=== PATIENT | female | born 1935 | race Hispanic/Latino ===

== ENCOUNTER 2018-11-08 11:26 | Inpatient (IN) | payer MEDICARE, OTHER ==
--- NOTE | 2018-11-08 11:51 | Emergency Department Report ---
Chief Complaint: Chest Pain Stated Complaint: CHEST PAIN/ALICE Time Seen by Provider: 11/08/18 11:49 - HPI History of Present Illness: RX LANSOPRAZILE NORVASC BENICAR VERAPAMIL RESTASIS NAMENDA ALENDRONATE VIT C D E GLUCOSAMINE MVI ALEVE PMH ALZ HTN PCP ANIKET CO CP THIS AM UNCLEAR DUE TO ALZ DISEASE MSE COMPLETED MSE screening note: Focused history and physical exam performed. Due to findings the following was ordered: ED Disposition for MSE Condition: Stable
--- NOTE | 2018-11-08 12:10 | XRay Report ---
Chest 2 views: History: Chest pain. Findings: Cardiomegaly. Trachea is midline. Mild COPD. Small hiatal hernia. No consolidation or pleural effusion. Impression: COPD. Small hiatal hernia. No acute lung changes.
[2018-11-08 13:00] LABS: Bacteria,Urine 1+ /HPF (Negative); Bilirubin,Urine NEG (Negative); Blood,Urine LG (Negative); Color,Urine Yellow (Yellow); Mucus,Urine 3+ /HPF; Urobilinogen,Urine < 2.0 mg/dL (<2.0)
[2018-11-08 13:37] LABS: Basophils # (Auto) 0.1 K/mm3 (0.0-0.1); Basophils % (Auto) 1.2 % (0.0-1.8); Eosinophils # (Auto) 0.7 K/mm3 (0.0-0.4); Eosinophils % (Auto) 9.7 % (0.0-4.3); Hematocrit 32.9 % (30.3-42.9); Hemoglobin 11.3 gm/dl (10.1-14.3); Lymphocytes # (Auto) 1.2 K/mm3 (1.2-5.4); Lymphocytes % (Auto) 16.8 % (13.4-35.0); Mean Corpuscular HGB Conc 34 % (30-34); Mean Corpuscular Volume 86 fl (79-97); Monocytes # (Auto) 0.7 K/mm3 (0.0-0.8); Monocytes % (Auto) 9.8 % (0.0-7.3); Platelet Count 401 K/mm3 (140-440); Red Blood Count 3.85 M/mm3 (3.65-5.03); Red Cell Distribution Width 13.9 % (13.2-15.2)
[2018-11-08 13:58] LABS: Albumin 3.5 g/dL (3.9-5); Calcium 9.4 mg/dL (8.4-10.2)
--- NOTE | 2018-11-08 16:34 | Emergency Department Report ---
ED Chest Pain HPI - General Chief Complaint: Chest Pain Stated Complaint: CHEST PAIN/ALICE Time Seen by Provider: 11/08/18 11:49 Source: patient, family Mode of arrival: Ambulatory Limitations: Altered Mental Status - History of Present Illness Initial Comments: Mrs. Hale is an 83 yo female with hx of Alzheimer's dementia and mild HTN who presents with chest pain today. Son, who is caregiver, noticed shortness of breath. Mrs. Hale was also holding her chest. Currently chest pain free at this time. No other medical problems or current concerns. in 2016, normal echocardiogram according to EMR, cardiovascular w/u for AMS was unremarkable in 2016 during hospital stay PCP Dr. Beni Echols Severity scale (0 -10): 0 - Related Data Home Medications Medication Instructions Recorded Confirmed Last Taken Furosemide [Lasix] 40 mg PO DAILY 12/06/13 07/24/15 Unknown Naproxen Sodium [Aleve TAB] 220 mg PO BID 12/06/13 07/24/15 Unknown amLODIPine [Norvasc] 10 mg PO DAILY 12/06/13 07/24/15 Unknown Amoxicillin [Trimox CAP] 500 mg PO Q8H 07/24/15 07/24/15 1 Day Ago ~07/23/15 Lansoprazole [Prevacid] 30 mg PO DAILY 07/24/15 07/24/15 Unknown Memantine HCl/Donepezil HCl 1 each PO DAILY 07/24/15 07/24/15 Unknown [Namzaric 28 mg-10 mg Capsule] Olmesartan (Nf) [Benicar] 40 mg PO QDAY 07/24/15 07/24/15 Unknown Vitamin D-3 400 units PO DAILY 07/24/15 07/24/15 Unknown Vitamin E 400 unit PO DAILY 07/24/15 07/24/15 Unknown Allergies Allergy/AdvReac Type Severity Reaction Status Date / Time No Known Allergies Allergy Verified 11/08/18 11:32 Heart Score - HEART Score History: Slightly suspicious EKG: Normal Age: > 65 Risk factors: 1-2 risk factors Troponin: < normal limit HEART Score: 3 ED Review of Systems ROS: Stated complaint: CHEST PAIN/ALICE Other details as noted in HPI Comment: Unobtainable due to pts medical conditions ED Past Medical Hx - Past Medical History Previous Medical History?: Yes Hx Hypertension: Yes Hx Heart Attack/AMI: No Hx Congestive Heart Failure: No Hx Deep Vein Thrombosis: No Hx Arthritis: Yes Hx Seizures: No Hx Tuberculosis: No Hx Dementia: Yes Hx HIV: No - Surgical History Hx Coronary Stent: No Hx Pacemaker: No Hx Internal Defibrillator: No Hx Breast Surgery: Yes Additional Surgical History: Breast surgery (breast CA), hysterectomy - Social History Smoking Status: Never Smoker Substance Use Type: None - Medications Home Medications: Home Medications Medication Instructions Recorded Confirmed Last Taken Type Furosemide [Lasix] 40 mg PO DAILY 12/06/13 07/24/15 Unknown History Naproxen Sodium [Aleve TAB] 220 mg PO BID 12/06/13 07/24/15 Unknown History amLODIPine [Norvasc] 10 mg PO DAILY 12/06/13 07/24/15 Unknown History Amoxicillin [Trimox CAP] 500 mg PO Q8H 07/24/15 07/24/15 1 Day Ago History ~07/23/15 Lansoprazole [Prevacid] 30 mg PO DAILY 07/24/15 07/24/15 Unknown History Memantine HCl/Donepezil HCl 1 each PO DAILY 07/24/15 07/24/15 Unknown History [Namzaric 28 mg-10 mg Capsule] Olmesartan (Nf) [Benicar] 40 mg PO QDAY 07/24/15 07/24/15 Unknown History Vitamin D-3 400 units PO DAILY 07/24/15 07/24/15 Unknown History Vitamin E 400 unit PO DAILY 07/24/15 07/24/15 Unknown History ED Physical Exam - General Limitations: Altered Mental Status General appearance: alert, in no apparent distress - Head Head exam: Present: atraumatic, normocephalic - Eye Eye exam: Present: normal appearance - ENT ENT exam: Present: mucous membranes moist - Neck Neck exam: Present: normal inspection - Respiratory Respiratory exam: Present: normal lung sounds bilaterally. Absent: respiratory distress, wheezes, rales, rhonchi - Cardiovascular Cardiovascular Exam: Present: regular rate, normal rhythm, normal heart sounds. Absent: systolic murmur, diastolic murmur, rubs, gallop - GI/Abdominal GI/Abdominal exam: Present: soft, normal bowel sounds. Absent: distended, tende rness, guarding, rebound - Neurological Exam Neurological exam: Present: alert - Psychiatric Psychiatric exam: Present: flat affect - Skin Skin exam: Present: warm, dry, intact, normal color. Absent: rash ED Course Vital Signs 11/08/18 11/08/18 11:49 16:16 Temperature 98 F 97.6 F Pulse Rate 79 72 Respiratory 16 16 Rate Blood Pressure 120/70 141/61 [Right] O2 Sat by Pulse 95 100 Oximetry ED Medical Decision Making - Lab Data Result diagrams: 11/08/18 13:11 11/08/18 13:11 Laboratory Results - last 24 hr 11/08/18 11/08/18 11/08/18 12:38 13:11 13:11 WBC 7.2 RBC 3.85 Hgb 11.3 Hct 32.9 MCV 86 MCH 29 MCHC 34 RDW 13.9 Plt Count 401 Lymph % (Auto) 16.8 [place] % (Auto) 9.8 H Eos % (Auto) 9.7 H Baso % (Auto) 1.2 Lymph # 1.2 [place] # 0.7 Eos # 0.7 H Baso # 0.1 Seg Neutrophils % 62.5 Seg Neutrophils # 4.5 Sodium 138 Potassium 5.6 H Chloride 102.7 Carbon Dioxide 19 L Anion Gap 22 BUN 42 H Creatinine 5.1 H Estimated GFR 8 BUN/Creatinine Ratio 8 Glucose 95 Calcium 9.4 Total Bilirubin 0.20 AST 11 ALT 10 Alkaline Phosphatase 65 Troponin T 0.026 Total Protein 6.8 Albumin 3.5 L Albumin/Globulin Ratio 1.1 Urine Color Yellow Urine Turbidity Cloudy Urine pH 5.0 Ur Specific [place] 1.021 Urine Protein 30 mg/dl Urine Glucose (UA) Neg Urine Ketones Neg Urine Blood Lg Urine Nitrite Neg Urine Bilirubin Neg Urine Urobilinogen < 2.0 Ur Leukocyte Esterase Tr Urine WBC (Auto) 2.0 Urine RBC (Auto) 5.0 U Epithel Cells (Auto) 15.0 H Urine Bacteria (Auto) 1+ Urine Mucus 3+ 11/08/18 15:33 WBC RBC Hgb Hct MCV MCH MCHC RDW Plt Count Lymph % (Auto) [place] % (Auto) Eos % (Auto) Baso % (Auto) Lymph # [place] # Eos # Baso # Seg Neutrophils % Seg Neutrophils # Sodium Potassium Chloride Carbon Dioxide Anion Gap BUN Creatinine Estimated GFR BUN/Creatinine Ratio Glucose Calcium Total Bilirubin AST ALT Alkaline Phosphatase Troponin T 0.018 Total Protein Albumin Albumin/Globulin Ratio Urine Color Urine Turbidity Urine pH Ur Specific [place] Urine Protein Urine Glucose (UA) Urine Ketones Urine Blood Urine Nitrite Urine Bilirubin Urine Urobilinogen Ur Leukocyte Esterase Urine WBC (Auto) Urine RBC (Auto) U Epithel Cells (Auto) Urine Bacteria (Auto) Urine Mucus - EKG Data 11/08/18 16:35 EKG obtained at 1140 Normal sinus rhythm rate 70 beats a minute left axis deviation no ST elevation positive LVH and no acute signs of ischemia - Radiology Data Radiology results: report reviewed COPD changes without acute thoracic process - Medical Decision Making This Geoffrey presents with nonspecific atypical chest pain. In spite age, she is low risk for acute coronary syndrome. She does not have any persistent chest pain. 2 troponin assay levels are within normal limits even downtrending. I do not suspect alternative cause for chest pain such as pulmonary embolism or dissection. I am concerned for decrease in kidney function over the past 3 years. Unclear chronicity. BUN creatinine elevated. Potassium 5.6. Bicarbonate decreased at 19. I discussed case with Dr. Tillman hospitalist who recommended admission. Critical care attestation.: If time is entered above; I have spent that time in minutes in the direct care of this critically ill patient, excluding procedure time. ED Disposition Clinical Impression: Acute kidney failure, Chest pain, Dementia Disposition: OP ADMIT IP TO THIS HOSP Is pt being admited?: Yes Does the pt Need Aspirin: No Condition: Stable
[2018-11-08] MEDS ORDERED: NACL 0.9% 1000 ML 1,000 ML IV ONE (16:57)
[2018-11-08] MEDS ORDERED: ATIVAN IM STA (17:36)
[2018-11-08] MEDS ORDERED: ZOFRAN IV PRN (21:25)
[2018-11-08] MEDS ORDERED: PERCOCET 5/325 PO PRN (21:25)
[2018-11-08] MEDS ORDERED: SODIUM CHLORIDE FLUSH SYRINGE 10 ML IV PRN (21:25)
[2018-11-08] MEDS ORDERED: MORPHINE IV PRN (21:25)
[2018-11-08] MEDS ORDERED: TYLENOL PO PRN (21:25)
[2018-11-08] MEDS: D5NS 1,000 ML IV SCH (21:53)
[2018-11-08] MEDS: NAMENDA PO SCH (22:06)
[2018-11-08] MEDS: SODIUM CHLORIDE FLUSH SYRINGE 10 ML IV SCH (22:08)
[2018-11-08] MEDS ORDERED: ATIVAN IV ONE (22:19)
[2018-11-09] MEDS ORDERED: ATIVAN IV ONE (01:00)
[2018-11-09] MEDS: D5NS 1,000 ML IV SCH ×2 (05:45→22:08)
[2018-11-09 07:06] LABS: Basophils # (Auto) 0.1 K/mm3 (0.0-0.1); Basophils % (Auto) 1.3 % (0.0-1.8); Eosinophils # (Auto) 0.6 K/mm3 (0.0-0.4); Eosinophils % (Auto) 11.8 % (0.0-4.3); Hematocrit 30.1 % (30.3-42.9); Hemoglobin 10.1 gm/dl (10.1-14.3); Lymphocytes # (Auto) 0.9 K/mm3 (1.2-5.4); Lymphocytes % (Auto) 16.4 % (13.4-35.0); Mean Corpuscular HGB Conc 34 % (30-34); Mean Corpuscular Volume 86 fl (79-97); Monocytes # (Auto) 0.5 K/mm3 (0.0-0.8); Monocytes % (Auto) 9.8 % (0.0-7.3); Platelet Count 313 K/mm3 (140-440); Red Cell Distribution Width 14.2 % (13.2-15.2)
--- NOTE | 2018-11-09 07:14 | Event Note ---
Date: 11/08/18 See H/p in reports SYL Chest pain
[2018-11-09 07:35] LABS: Alanine Aminotransferase 8 units/L (7-56); Albumin 2.9 g/dL (3.9-5); BUN/Creatinine Ratio 8; Blood Urea Nitrogen 37 mg/dL (7-17); Calcium 8.4 mg/dL (8.4-10.2); Hemolysis Index 1
--- NOTE | 2018-11-09 08:07 | History and Physical Report ---
CHIEF COMPLAINT: Left-sided chest pain and shortness of breath for 1 day. HISTORY OF PRESENT ILLNESS: An 83-year-old female with history of hypertension, chronic arthritis, on nonsteroidal anti-inflammatories, comes in for chest pain and shortness of breath. Currently, chest pain free. In the Emergency Room, the patient was noticed to have a creatinine of 5.1, hence the admission. No known history of elevated creatinine in the past. Baseline creatinine is around 1. The patient also has dementia. Chest pain is intermittent for 1 day duration. No diaphoresis, no palpitations. Some shortness of breath present. No exacerbating or precipitating factors. PAST MEDICAL HISTORY: Significant for dementia, hypertension, osteoarthritis, questionable CHF. CURRENT MEDICATIONS: The patient is on anti-inflammatories for a long duration, especially Aleve 220 twice a day on a chronic basis. Also, the patient on olmesartan, Namenda, and amlodipine. PAST SURGICAL HISTORY: Breast surgery and hysterectomy. No defibrillator. SOCIAL HISTORY: Does not smoke. No alcohol, no recreational drugs. Lives with the son. FAMILY HISTORY: Hypertension. REVIEW OF SYSTEMS: Significant for chest pain and some shortness of breath and dementia. Otherwise, the patient is independent with ADLs. Review of systems is otherwise negative. PHYSICAL EXAMINATION: GENERAL: Elderly female, cooperative during examination. VITAL SIGNS: Blood pressure is 131/59, temperature is 97.2, pulse is 74, respirations is 20. HEENT: Unremarkable. Pupils equal and reactive. NECK: Supple, no lymphadenopathy, no thyromegaly. LUNGS: Clear to auscultation and percussion. Good air entry. CARDIOVASCULAR: S1, S2 heard. No gallop, no murmur, no rub. Apical impulse in left fifth intercostal space and midclavicular line. ABDOMEN: Soft and benign. No hepatosplenomegaly. No guarding, no rigidity. Hernial orifices are normal. EXTREMITIES: Good pedal pulses. No pedal edema. CENTRAL NERVOUS SYSTEM: Alert and oriented to time and place and person. SKIN: Normal. LABORATORY DATA: Significant for white count of 7200, H and H 11.3 and 32.9, platelet count is 401,000. Potassium was high at 5.6, BUN and creatinine is 42 and 5.1, albumin is 3.5. Urine negative for infection. EKG shows heart rate of 73 and sinus rhythm. Atrial premature complex, left anterior fascicular block, left ventricular hypertrophy. Chest x-ray shows COPD. Small hiatal hernia. The patient's baseline creatinine is 1.4 on 07/24/2015 and 1.1 on 07/25/2015, which was normal. BUN was 15 and 1.1 on 07/25/2015. Now, it is 42 and 5.1. ASSESSMENT AND PLAN: 1. Acute kidney injury. IV fluids. Nephrology consult requested. Creatinine jumped from 1.1 to 5.1. We will trend the creatinine levels.ATN versus Vasomotor Nephropathy.More in favor of ATN. 2. Chest pain, rule out myocardial infarction, chest pain protocol. Also, Lexiscan ordered. 3. Hypertension. Continue olmesartan. 4. Osteoarthritis. Hold nonsteroidal anti-inflammatories which may be causing the kidney injury. 5. Malnutrition, mild. Dietitian consult requested. 6. Deep venous thrombosis prophylaxis. ____ Heparin 5000 q. 12h. and GI prophylaxis. JOB# [id number] HECTOR/ISAI AMOS
[2018-11-09] MEDS ORDERED: LEXISCAN IV ONE ×2 (09:40)
--- NOTE | 2018-11-09 09:51 | Event Note ---
Date: 11/09/18 Patient was seen in the stress lab this morning Patient is altered and cannot answer questions. She is barely arousable and responsive Discussed with Dr Tillman. Stress test will be cancelled. A conservative cardiac approach is recommended
[2018-11-09] MEDS ORDERED: COZAAR PO SCH (10:00)
--- NOTE | 2018-11-09 10:51 | Progress Note ---
Assessment and Plan Assessment and plan: Patient is a 83 yo woman with a history of Dementia, CKD 3 with baseline Cr of 1.1, OA on NSAIDS, hypertension and Breast cancer who presented to [facility] ED with chest pains and sob. She was unable to do stress test due to Dementia. * pCXR showed COPD and no acute findings Chest pains, atypical: unable to do stress test due to iv ativan, Cardiology recommends medical management. ARF/CKD 3, tubular necrosis and vasomotor nephropathy: treat with IVF, monitor bmp closely, consulted Nephrology Moderate malnutrition: Mobility Architect Manager Metabolic acidosis: treat the renal failure, repeat bmp Hyperkalemia: stop the Losartan, give kayexalate Acute metabolic encephalopathy Renal consult pending Renal u/s ordered History Interval history: Patient was seen and examined. Follow-up on current diagnosis CP, renal failure. No Overnight events reported to me. Patient denies any chest pain, shortness breath, nausea/vomiting or severe headaches. Imaging, nursing note, chart, labs and old chart reviewed. Discussed with patient. Son Julius at bedside. Patient received 1mg iv ativan around midnight. Hospitalist Physical - Physical exam Narrative exam: Gen: thin frail, sleeping and snoring HEENT: NCAT, EOMI, PERRL, OP Clear Neck: supple, no adenopathy, no thyromegaly, no JVD CVS/Heart: RRR, normal S1S2, pulses present bilaterally Chest/Lungs: CTA B, Symmetrical chest expansion, good air entry bilaterally GI/Abdomen: soft, NTND, good bowel sounds, no guarding or rebound /Bladder: no suprapubic tenderness, no CVA or paraspinal tenderness Extermity/Skin: no c/c/e, no obvious rash MSK: not following commands Neuro: not following commands Psych:not following commands - Constitutional Vitals: Temp Pulse Resp BP Pulse Ox 97.5 F L 86 20 135/67 93 11/09/18 05:37 11/09/18 05:37 11/09/18 05:37 11/09/18 05:37 11/09/18 05:37 Results - Labs CBC & Chem 7: 11/09/18 06:36 11/09/18 06:36 Labs: Laboratory Last Values WBC 5.2 K/mm3 (4.5-11.0) 11/09/18 06:36 RBC 3.50 M/mm3 (3.65-5.03) L 11/09/18 06:36 Hgb 10.1 gm/dl (10.1-14.3) 11/09/18 06:36 Hct 30.1 % (30.3-42.9) L 11/09/18 06:36 MCV 86 fl (79-97) 11/09/18 06:36 MCH 29 pg (28-32) 11/09/18 06:36 MCHC 34 % (30-34) 11/09/18 06:36 RDW 14.2 % (13.2-15.2) 11/09/18 06:36 Plt Count 313 K/mm3 (140-440) 11/09/18 06:36 Lymph % (Auto) 16.4 % (13.4-35.0) 11/09/18 06:36 [place] % (Auto) 9.8 % (0.0-7.3) H 11/09/18 06:36 Eos % (Auto) 11.8 % (0.0-4.3) H 11/09/18 06:36 Baso % (Auto) 1.3 % (0.0-1.8) 11/09/18 06:36 Lymph # 0.9 K/mm3 (1.2-5.4) L 11/09/18 06:36 [place] # 0.5 K/mm3 (0.0-0.8) 11/09/18 06:36 Eos # 0.6 K/mm3 (0.0-0.4) H 11/09/18 06:36 Baso # 0.1 K/mm3 (0.0-0.1) 11/09/18 06:36 Seg Neutrophils % 60.7 % (40.0-70.0) 11/09/18 06:36 Seg Neutrophils # 3.1 K/mm3 (1.8-7.7) 11/09/18 06:36 Sodium 140 mmol/L (137-145) 11/09/18 06:36 Potassium 5.1 mmol/L (3.6-5.0) H 11/09/18 06:36 Chloride 110.0 mmol/L (98-107) H 11/09/18 06:36 Carbon Dioxide 19 mmol/L (22-30) L 11/09/18 06:36 16 mmol/L 11/09/18 06:36 BUN 37 mg/dL (7-17) H 11/09/18 06:36 4.4 mg/dL (0.7-1.2) H 11/09/18 06:36 Estimated GFR 10 ml/min 11/09/18 06:36 8 % 11/09/18 06:36 Glucose 96 mg/dL (65-100) 11/09/18 06:36 POC Glucose 118 (70-105) H 11/08/18 19:04 5.6 % (4-6) 11/08/18 21:35 Calcium 8.4 mg/dL (8.4-10.2) 11/09/18 06:36 < 0.20 mg/dL (0.1-1.2) 11/09/18 06:36 AST 13 units/L (5-40) 11/09/18 06:36 ALT 8 units/L (7-56) 11/09/18 06:36 53 units/L (35-129) 11/09/18 06:36 0.012 ng/mL (0.00-0.029) 11/08/18 16:54 5.6 g/dL (6.3-8.2) L 11/09/18 06:36 2.9 g/dL (3.9-5) L 11/09/18 06:36 1.1 % 11/09/18 06:36 Yellow (Yellow) 11/08/18 12:38 Cloudy (Clear) 11/08/18 12:38 5.0 (5.0-7.0) 11/08/18 12:38 Ur Specific [place] 1.021 (1.003-1.030) 11/08/18 12:38 30 mg/dl mg/dL (Negative) 11/08/18 12:38 Neg mg/dL (Negative) 11/08/18 12:38 Neg mg/dL (Negative) 11/08/18 12:38 Lg (Negative) 11/08/18 12:38 Neg (Negative) 11/08/18 12:38 Neg (Negative) 11/08/18 12:38 < 2.0 mg/dL (<2.0) 11/08/18 12:38 Ur Leukocyte Esterase Tr (Negative) 11/08/18 12:38 2.0 /HPF (0.0-6.0) 11/08/18 12:38 5.0 /HPF (0.0-6.0) 11/08/18 12:38 U Epithel Cells (Auto) 15.0 /HPF (0-13.0) H 11/08/18 12:38 1+ /HPF (Negative) 11/08/18 12:38 3+ /HPF 11/08/18 12:38 Active Medications - Current Medications Current Medications: Generic Name Dose Route Start Last Admin Trade Name Freq PRN Reason Stop Dose Admin Acetaminophen 650 mg 11/08/18 21:25 Tylenol PO Q4H PRN Pain MILD(1-3)/Fever >100.5/GLASS Amlodipine Besylate 10 mg 11/09/18 18:00 Norvasc PO QPM [facility] Ascorbic Acid 500 mg 11/09/18 10:00 Vitamin C PO DAILY [facility] Cholecalciferol 400 unit 11/09/18 10:00 Vitamin D3 PO DAILY [facility] Dextrose/Sodium Chloride 1,000 mls @ 100 mls/hr 11/08/18 22:00 11/09/18 05:45 D5ns IV 100 mls/hr DIRECT SUMMER Administration Memantine 10 mg 11/08/18 22:00 11/08/18 22:06 Namenda PO 10 mg Q12HR SUMMER Administration Morphine Sulfate 2 mg 11/08/18 21:25 Morphine IV Q4H PRN Pain, Moderate (4-6) Ondansetron HCl 4 mg 11/08/18 21:25 Zofran IV Q8H PRN Nausea And Vomiting Oxycodone/Acetaminophen 1 tab 11/08/18 21:25 Percocet 5/325 PO Q6H PRN Pain, Moderate (4-6) Sodium Chloride 10 ml 11/08/18 22:00 11/08/18 22:08 Sodium Chloride Flush Syringe 10 Ml IV 10 ml BID SUMMER Administration Sodium Chloride 10 ml 11/08/18 21:25 Sodium Chloride Flush Syringe 10 Ml IV PRN PRN LINE FLUSH Verapamil HCl 240 mg 11/09/18 10:00 Calan Sr PO DAILY [facility] Vitamin E 400 unit 11/09/18 10:00 Vitamin E Cap PO DAILY [facility]
[2018-11-09] MEDS: VITAMIN C PO SCH (11:02)
[2018-11-09] MEDS: CALAN SR PO SCH (11:03)
[2018-11-09] MEDS: NAMENDA PO SCH ×2 (11:04→22:09)
[2018-11-09] MEDS: SODIUM CHLORIDE FLUSH SYRINGE 10 ML IV SCH ×2 (11:05→22:11)
[2018-11-09] MEDS ORDERED: KIONEX PO ONE (11:51)
[2018-11-09] MEDS: VITAMIN E CAP PO SCH (12:59)
[2018-11-09] MEDS: VITAMIN D3 PO SCH (12:59)
--- NOTE | 2018-11-09 18:06 | Consultation ---
History of Present Illness - Reason for Consult Consult date: 11/09/18 acute renal failure Requesting physician: RED [place]ADWICK - History of Present Illness 83-year-old lady who is not known to me with history of hypertension, also x- rays who follows Dr. Beni Echols and [facility]. She has a history of eczema as dementia and has been very forgetful much more done before in the last months prednisone. She presents on account of chest pain and shortness of breath. BUN/ creatinine were elevated at 42/5.1 mg/dL and I am consulted to assist with managing this. Potassium was also high at 5.1 mmol per liter and bicarbonate low at 19 mmol per liter. She's not been having any vomiting or diarrhea. He son. No recent exposure to radiocontrast. She takes Aleve 1 tablet twice a day and has done so for years for joint pains. Recently because she stays awake for less than 6 hours a day he has been giving it to her just once a day. 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 denies: smoking, alcohol abuse, prescription drug abuse, IV drug use Family history: cancer (mother of breast cancer. One sister of ovarian cancer with metastases to the lungs.), other (does not know about her father) Medications and Allergies Allergies Allergy/AdvReac Type Severity Reaction Status Date / Time No Known Allergies Allergy Verified 11/08/18 11:32 Home Medications Medication Instructions Recorded Confirmed Last Taken Type amLODIPine [Norvasc] 10 mg PO QPM 12/06/13 11/08/18 Unknown History Lansoprazole [Prevacid] 30 mg PO DAILY 07/24/15 11/08/18 Unknown History Vitamin E 400 unit PO DAILY 07/24/15 11/08/18 Unknown History Alendronate Sodium [Fosamax] 70 mg PO QWEEK 11/08/18 11/08/18 Unknown History Ascorbic Acid [Vitamin C with Violeta 500 mg PO DAILY 11/08/18 11/08/18 Unknown History Hips] Cholecalciferol Vit D3 [Vitamin D3 400 unit PO DAILY 11/08/18 11/08/18 Unknown History 400 UNIT TAB] Glucosamine Sulfate [Cidatrine] 1,000 mg PO DAILY 11/08/18 11/08/18 Unknown Hist ory Memantine HCl [Namenda Xr] 28 mg PO DAILY 11/08/18 11/08/18 Unknown History Multivit-Min/Iron/Folic/Lutein 1 each PO DAILY 11/08/18 11/08/18 Unknown History [Centrum Silver Women Tablet] Naproxen Sodium [Aleve] 220 mg PO DAILY 11/08/18 11/08/18 Unknown History Olmesartan (Nf) [Benicar (Nf)] 40 mg PO QDAY 11/08/18 11/08/18 Unknown History Verapamil ER [Calan Sr] 240 mg PO DAILY 11/08/18 11/08/18 Unknown History Active Meds: Active Medications Acetaminophen (Tylenol) 650 mg PO Q4H PRN PRN Reason: Pain MILD(1-3)/Fever >100.5/GLASS Amlodipine Besylate (Norvasc) 10 mg PO QPM [facility] Ascorbic Acid (Vitamin C) 500 mg PO DAILY [facility] Last Admin: 11/09/18 11:02 Dose: 500 mg Documented by: Cholecalciferol (Vitamin D3) 400 unit PO DAILY [facility] Last Admin: 11/09/18 12:59 Dose: 400 unit Documented by: Dextrose/Sodium Chloride (D5ns) 1,000 mls @ 100 mls/hr IV DIRECT [facility] Last Admin: 11/09/18 05:45 Dose: 100 mls/hr Documented by: Memantine (Namenda) 10 mg PO Q12HR [facility] Last Admin: 11/09/18 11:04 Dose: 10 mg Documented by: Morphine Sulfate (Morphine) 2 mg IV Q4H PRN PRN Reason: Pain, Moderate (4-6) Ondansetron HCl (Zofran) 4 mg IV Q8H PRN PRN Reason: Nausea And Vomiting Oxycodone/Acetaminophen (Percocet 5/325) 1 tab PO Q6H PRN PRN Reason: Pain, Moderate (4-6) Sodium Chloride (Sodium Chloride Flush Syringe 10 Ml) 10 ml IV BID [facility] Last Admin: 11/09/18 11:05 Dose: 10 ml Documented by: Sodium Chloride (Sodium Chloride Flush Syringe 10 Ml) 10 ml IV PRN PRN PRN Reason: LINE FLUSH Verapamil HCl (Calan Sr) 240 mg PO DAILY [facility] Last Admin: 11/09/18 11:03 Dose: 240 mg Documented by: Vitamin E (Vitamin E Cap) 400 unit PO DAILY [facility] Last Admin: 11/09/18 12:59 Dose: 400 unit Documented by: Review of Systems ROS unobtainable: due to mental status (except as noted in history of present illness) Exam - Vital Signs Vital signs: Vital Signs Temp Pulse Resp BP Pulse Ox 98 F 79 16 120/70 95 11/08/18 11:49 11/08/18 11:49 11/08/18 11:49 11/08/18 11:49 11/08/18 11:49 - Physical Exam Narrative exam: Elderly female lying in bed in no acute distress HEENT: NCAT, pink oral mucous membrane Neck: Supple, no venous distention CVS: S1S2 RRR with no murmur, rub or gallop Chest: Clear to auscultation Abdomen: Protuberant, soft, nontender, suprapubic fullness, bowel sounds are present Extremities: No edema Neuro: Awake, alert no focal deficits Results - Lab Results 11/09/18 06:36 11/11/18 05:05 Most recent lab results Calcium 8.4 mg/dL (8.4-10.2) 11/09/18 06:36 Assessment and Plan - Patient Problems (1) Hyperkalemia Current Visit: Yes Status: Acute Plan to address problem: Hyperkalemia secondary to renal failure with decreased potassium clearance and also NSAID use with decrease distant delivery of sodium due to volume depletion. Aggressive medical management of hyperkalemia (2) Metabolic acidosis Current Visit: Yes Status: Acute Plan to address problem: Acidosis related to uremia. Medical management. 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 Suspect NSAID induced nephropathy superimposed. Kidney function improved with volume repletion. Avoid NSAIDs and other potential nephrotoxins. Discussed avoiding NSAIDs in detail with the son. Get urine studies. Follow-up kidney and bladder ultrasound. Follow-up electrolytes and renal function (4) Chest pain Current Visit: Yes Status: Acute Plan to address problem: Management by art preparator (5) Dementia Current Visit: Yes Status: Acute Plan to address problem: Management by primary attending
[2018-11-09] MEDS: NORVASC PO SCH (18:09)
--- NOTE | 2018-11-09 23:18 | Ultrasound Report ---
PROCEDURE: US RENAL BILAT TECHNIQUE: Real-time sonography in multiple planes of the kidneys, ureters and urinary bladder was p erformed with image documentation. HISTORY: ARF COMPARISONS: None . FINDINGS: RIGHT kidney: There is increased cortical echotexture. No focal renal mass, calculus, or hydronephros is. Length: 9.2 x 4.7 x 5.3 cm. LEFT kidney: There is increased cortical echotexture. No focal renal mass, calculus, or hydronephrosi s. Length: 9.1 x 4.7 x 4.2 cm. Bladder: Normal.. IMPRESSION: Increased renal cortical echotexture is consistent with medical renal disease.. This document is electronically signed by Gold Ferguson MD., Nov 09 2018 11:15:55 PM ET
[2018-11-10 06:55] LABS: Calcium 8.4 mg/dL (8.4-10.2)
[2018-11-10] MEDS: NAMENDA PO SCH ×2 (10:00→21:56)
[2018-11-10] MEDS: VITAMIN D3 PO SCH (10:00)
[2018-11-10] MEDS: VITAMIN E CAP PO SCH (10:00)
[2018-11-10] MEDS: CALAN SR PO SCH (10:00)
[2018-11-10] MEDS: VITAMIN C PO SCH (10:52)
[2018-11-10] MEDS ORDERED: LEXISCAN IV ONE ×2 (10:58→12:11)
[2018-11-10] MEDS: SODIUM CHLORIDE FLUSH SYRINGE 10 ML IV SCH ×2 (11:00→22:05)
--- NOTE | 2018-11-10 11:08 | Progress Note ---
Assessment and Plan - Patient Problems (1) Acute kidney failure Current Visit: Yes Status: Acute Plan to address problem: Likely pre-renal in etiology with response noted with IVF hydration. Will continue to monitor. Renal US noted with no acute abnormalities Avoid nephrotoxins, maintain MAP >65mmHg. (2) Chest pain Current Visit: Yes Status: Acute Plan to address problem: Conservative management recommended by cardiology. (3) Dementia Current Visit: Yes Status: Acute Plan to address problem: Patient with baseline dementia and significant cognitive deficits. Will closely monitor. (4) Hyperkalemia Current Visit: Yes Status: Acute Plan to address problem: Resolved with IVF hydration and use of kayexulate for one dose yesterday. Continue to closely monitor. (5) Metabolic acidosis Current Visit: Yes Status: Acute Plan to address problem: Slow improvement noted with IVF hydration. Will continue to monitor. Subjective Date of service: 11/10/18 Interval history: Patient unable to undergo stress test yesterday. Labs noted and overall renal function is improving with IVF hydration. She remains at her baseline in regards to mental status, with significant dementia at baseline. No family at bedside. Objective - Vital Signs Vital signs: Vital Signs - 12hr 11/09/18 11/10/18 11/10/18 23:23 04:50 08:28 Temperature 98.7 F 97.5 F L 98.0 F Pulse Rate 101 H 103 H 102 H Respiratory 20 20 18 Rate Blood Pressure 137/55 130/62 134/57 O2 Sat by Pulse 91 91 93 Oximetry - General Appearance General appearance: chronically ill, frail EENT: ATNC, PERRL Neck: no JVD, no thyromegaly Respiratory: Present: Clear to Ascultation Cardiology: regular, S1S2 Gastrointestinal: normal, normoactive bowel sounds Integumentary: no rash, warm and dry Neurologic: confused Musculoskeletal: deferred - Lab 11/09/18 06:36 11/10/18 05:26 Most recent lab results Calcium 8.4 mg/dL (8.4-10.2) 11/10/18 05:26 Magnesium 1.80 mg/dL (1.7-2.3) 11/10/18 05:26 - Imaging Chest x-ray: report reviewed - Allied health notes Allied health notes reviewed: nursing Medications & Allergies - Medications Allergies/Adverse Reactions: Allergies No Known Allergies Allergy (Verified 11/08/18 11:32) Home Medications: Home Medications Medication Instructions Recorded Confirmed Last Taken Type amLODIPine [Norvasc] 10 mg PO QPM 12/06/13 11/08/18 Unknown History Lansoprazole [Prevacid] 30 mg PO DAILY 07/24/15 11/08/18 Unknown History Vitamin E 400 unit PO DAILY 07/24/15 11/08/18 Unknown History Alendronate Sodium [Fosamax] 70 mg PO QWEEK 11/08/18 11/08/18 Unknown History Ascorbic Acid [Vitamin C with Violeta 500 mg PO DAILY 11/08/18 11/08/18 Unknown History Hips] Cholecalciferol Vit D3 [Vitamin D3 400 unit PO DAILY 11/08/18 11/08/18 Unknown History 400 UNIT TAB] Glucosamine Sulfate [Cidatrine] 1,000 mg PO DAILY 11/08/18 11/08/18 Unknown History Memantine HCl [Namenda Xr] 28 mg PO DAILY 11/08/18 11/08/18 Unknown History Multivit-Min/Iron/Folic/Lutein 1 each PO DAILY 11/08/18 11/08/18 Unknown History [Centrum Silver Women Tablet] Naproxen Sodium [Aleve] 220 mg PO DAILY 11/08/18 11/08/18 Unknown History Olmesartan (Nf) [Benicar (Nf)] 40 mg PO QDAY 11/08/18 11/08/18 Unknown History Verapamil ER [Calan Sr] 240 mg PO DAILY 11/08/18 11/08/18 Unknown History Active Medications: Generic Name Dose Route Start Last Admin Trade Name Klausq PRN Reason Stop Dose Admin Acetaminophen 650 mg 11/08/18 21:25 Tylenol PO Q4H PRN Pain MILD(1-3)/Fever >100.5/GLASS Amlodipine Besylate 10 mg 11/09/18 18:00 11/09/18 18:09 Norvasc PO 10 mg QPM SUMMER Administration Ascorbic Acid 500 mg 11/09/18 10:00 11/10/18 10:52 Vitamin C PO 500 mg DAILY SUMMER Administration Cholecalciferol 400 unit 11/09/18 10:00 11/09/18 12:59 Vitamin D3 PO 400 unit DAILY SUMMER Administration Dextrose/Sodium Chloride 1,000 mls @ 100 mls/hr 11/08/18 22:00 11/09/18 22:08 D5ns IV 100 mls/hr DIRECT SUMMER Administration Memantine 10 mg 11/08/18 22:00 11/09/18 22:09 Namenda PO 10 mg Q12HR SUMMER Administration Morphine Sulfate 2 mg 11/08/18 21:25 Morphine IV Q4H PRN Pain, Moderate (4-6) Ondansetron HCl 4 mg 11/08/18 21:25 Zofran IV Q8H PRN Nausea And Vomiting Oxycodone/Acetaminophen 1 tab 11/08/18 21:25 Percocet 5/325 PO Q6H PRN Pain, Moderate (4-6) Sodium Chloride 10 ml 11/08/18 22:00 11/09/18 22:11 Sodium Chloride Flush Syringe 10 Ml IV 10 ml BID SUMMER Administration Sodium Chloride 10 ml 11/08/18 21:25 Sodium Chloride Flush Syringe 10 Ml IV PRN PRN LINE FLUSH Verapamil HCl 240 mg 11/09/18 10:00 11/09/18 11:03 Calan Sr PO 240 mg DAILY SUMMER Administration Vitamin E 400 unit 11/09/18 10:00 11/09/18 12:59 Vitamin E Cap PO 400 unit DAILY SUMMER Administration
--- NOTE | 2018-11-10 14:21 | Progress Note ---
Assessment and Plan Assessment and plan: Patient is a 83 yo woman with a history of Dementia, CKD 3 with baseline Cr of 1.1, OA on NSAIDS, hypertension and Breast cancer who presented to [facility] ED with chest pains and sob. She was unable to do stress test due to Dementia. * pCXR showed COPD and no acute findings Chest pains, atypical: unable to do stress test on Wednesday due to iv ativan, Cardiology recommends medical management. 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 Cr 5.1-->4.4-->3.7 today. Last Cr in our EMR was 2015 and it was 1.1 History Interval history: Patient was seen and examined. Follow-up on current diagnosis CP, renal failure. No Overnight events reported to me. Patient denies any chest pain, shortness breath, nausea/vomiting or severe headaches. Imaging, nursing note, chart, labs and old chart reviewed. Discussed with patient. Son Julius at bedside. Hospitalist Physical - Physical exam Narrative exam: Gen: thin frail, nad, awake and alert and confused HEENT: NCAT, EOMI, PERRL, OP Clear Neck: supple, no adenopathy, no thyromegaly, no JVD CVS/Heart: RRR, normal S1S2, pulses present bilaterally Chest/Lungs: CTA B, Symmetrical chest expansion, good air entry bilaterally GI/Abdomen: soft, NTND, good bowel sounds, no guarding or rebound /Bladder: no suprapubic tenderness, no CVA or paraspinal tenderness Extermity/Skin: no c/c/e, no obvious rash MSK: sROM x 4 Neuro: no focal deficits Psych: calm and confused - Constitutional Vitals: Temp Pulse Resp BP Pulse Ox 98.0 F 102 H 18 127/58 93 11/10/18 08:28 11/10/18 08:28 11/10/18 08:28 11/10/18 12:24 11/10/18 08:28 Results - Labs CBC & Chem 7: 11/09/18 06:36 11/10/18 05:26 Labs: Laboratory Last Values WBC 5.2 K/mm3 (4.5-11.0) 11/09/18 06:36 RBC 3.50 M/mm3 (3.65-5.03) L 11/09/18 06:36 Hgb 10.1 gm/dl (10.1-14.3) 11/09/18 06:36 Hct 30.1 % (30.3-42.9) L 11/09/18 06:36 MCV 86 fl (79-97) 11/09/18 06:36 MCH 29 pg (28-32) 11/09/18 06:36 MCHC 34 % (30-34) 11/09/18 06:36 RDW 14.2 % (13.2-15.2) 11/09/18 06:36 Plt Count 313 K/mm3 (140-440) 11/09/18 06:36 Lymph % (Auto) 16.4 % (13.4-35.0) 11/09/18 06:36 [place] % (Auto) 9.8 % (0.0-7.3) H 11/09/18 06:36 Eos % (Auto) 11.8 % (0.0-4.3) H 11/09/18 06:36 Baso % (Auto) 1.3 % (0.0-1.8) 11/09/18 06:36 Lymph # 0.9 K/mm3 (1.2-5.4) L 11/09/18 06:36 [place] # 0.5 K/mm3 (0.0-0.8) 11/09/18 06:36 Eos # 0.6 K/mm3 (0.0-0.4) H 11/09/18 06:36 Baso # 0.1 K/mm3 (0.0-0.1) 11/09/18 06:36 Seg Neutrophils % 60.7 % (40.0-70.0) 11/09/18 06:36 Seg Neutrophils # 3.1 K/mm3 (1.8-7.7) 11/09/18 06:36 Sodium 143 mmol/L (137-145) 11/10/18 05:26 Potassium 4.3 mmol/L (3.6-5.0) 11/10/18 05:26 Chloride 111.6 mmol/L (98-107) H 11/10/18 05:26 Carbon Dioxide 20 mmol/L (22-30) L 11/10/18 05:26 16 mmol/L 11/10/18 05:26 BUN 28 mg/dL (7-17) H 11/10/18 05:26 3.7 mg/dL (0.7-1.2) H 11/10/18 05:26 Estimated GFR 12 ml/min 11/10/18 05:26 8 % 11/10/18 05:26 Glucose 78 mg/dL (65-100) 11/10/18 05:26 POC Glucose 118 (70-105) H 11/08/18 19:04 5.6 % (4-6) 11/08/18 21:35 Calcium 8.4 mg/dL (8.4-10.2) 11/10/18 05:26 Magnesium 1.80 mg/dL (1.7-2.3) 11/10/18 05:26 < 0.20 mg/dL (0.1-1.2) 11/09/18 06:36 AST 13 units/L (5-40) 11/09/18 06:36 ALT 8 units/L (7-56) 11/09/18 06:36 53 units/L (35-129) 11/09/18 06:36 0.012 ng/mL (0.00-0.029) 11/08/18 16:54 5.6 g/dL (6.3-8.2) L 11/09/18 06:36 2.9 g/dL (3.9-5) L 11/09/18 06:36 1.1 % 11/09/18 06:36 Yellow (Yellow) 11/08/18 12:38 Cloudy (Clear) 11/08/18 12:38 5.0 (5.0-7.0) 11/08/18 12:38 Ur Specific [place] 1.021 (1.003-1.030) 11/08/18 12:38 30 mg/dl mg/dL (Negative) 11/08/18 12:38 Neg mg/dL (Negative) 11/08/18 12:38 Neg mg/dL (Negative) 11/08/18 12:38 Lg (Negative) 11/08/18 12:38 Neg (Negative) 11/08/18 12:38 Neg (Negative) 11/08/18 12:38 < 2.0 mg/dL (<2.0) 11/08/18 12:38 Ur Leukocyte Esterase Tr (Negative) 11/08/18 12:38 2.0 /HPF (0.0-6.0) 11/08/18 12:38 5.0 /HPF (0.0-6.0) 11/08/18 12:38 U Epithel Cells (Auto) 15.0 /HPF (0-13.0) H 11/08/18 12:38 1+ /HPF (Negative) 11/08/18 12:38 3+ /HPF 11/08/18 12:38 Active Medications - Current Medications Current Medications: Generic Name Dose Route Start Last Admin Trade Name Seferino PRN Reason Stop Dose Admin Acetaminophen 650 mg 11/08/18 21:25 Tylenol PO Q4H PRN Pain MILD(1-3)/Fever >100.5/GLASS Amlodipine Besylate 10 mg 11/09/18 18:00 11/09/18 18:09 Norvasc PO 10 mg QPM SUMMER Administration Ascorbic Acid 500 mg 11/09/18 10:00 11/10/18 10:52 Vitamin C PO 500 mg DAILY SUMMER Administration Cholecalciferol 400 unit 11/09/18 10:00 11/09/18 12:59 Vitamin D3 PO 400 unit DAILY SUMMER Administration Dextrose/Sodium Chloride 1,000 mls @ 100 mls/hr 11/08/18 22:00 11/09/18 22:08 D5ns IV 100 mls/hr DIRECT SUMMER Administration Memantine 10 mg 11/08/18 22:00 11/09/18 22:09 Namenda PO 10 mg Q12HR SUMMER Administration Morphine Sulfate 2 mg 11/08/18 21:25 Morphine IV Q4H PRN Pain, Moderate (4-6) Ondansetron HCl 4 mg 11/08/18 21:25 Zofran IV Q8H PRN Nausea And Vomiting Oxycodone/Acetaminophen 1 tab 11/08/18 21:25 Percocet 5/325 PO Q6H PRN Pain, Moderate (4-6) Sodium Chloride 10 ml 11/08/18 22:00 11/09/18 22:11 Sodium Chloride Flush Syringe 10 Ml IV 10 ml BID SUMMER Administration Sodium Chloride 10 ml 11/08/18 21:25 Sodium Chloride Flush Syringe 10 Ml IV PRN PRN LINE FLUSH Verapamil HCl 240 mg 11/09/18 10:00 11/09/18 11:03 Calan Sr PO 240 mg DAILY SUMMER Administration Vitamin E 400 unit 11/09/18 10:00 11/09/18 12:59 Vitamin E Cap PO 400 unit DAILY SUMMER Administration
[2018-11-10] MEDS: NORVASC PO SCH (20:07)
[2018-11-10] MEDS: D5NS 1,000 ML IV SCH (22:09)
[2018-11-11] MEDS: VITAMIN E CAP PO SCH (09:25)
[2018-11-11] MEDS: CALAN SR PO SCH (09:25)
[2018-11-11] MEDS: NAMENDA PO SCH ×2 (09:25→22:00)
[2018-11-11] MEDS: VITAMIN D3 PO SCH (09:25)
[2018-11-11] MEDS: VITAMIN C PO SCH (09:26)
[2018-11-11] MEDS: SODIUM CHLORIDE FLUSH SYRINGE 10 ML IV SCH ×3 (09:26→22:00)
[2018-11-11] MEDS: D5NS 1,000 ML IV SCH (11:12)
--- NOTE | 2018-11-11 12:51 | Progress Note ---
Assessment and Plan Assessment and plan: Patient is a 83 yo woman with a history of Dementia, CKD 3 with baseline Cr of 1.1, OA on NSAIDS, hypertension and Breast cancer who presented to [facility] ED with chest pains and sob. She was unable to do stress test due to Dementia. 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 Cr 5.1-->4.4-->3.7-->3.1 today. Last Cr in our EMR was 2016 and it was 1.1 History Interval history: Patient was seen and examined. Follow-up on current diagnosis CP, renal failure. No Overnight events reported to me. Patient denies any chest pain, shortness breath, nausea/vomiting or severe headaches. Imaging, nursing note, chart, labs and old chart reviewed. Discussed with patient. Son Julius at bedside. Hospitalist Physical - Physical exam Narrative exam: Gen: thin frail, nad, awake and alert and confused HEENT: NCAT, EOMI, PERRL, OP Clear Neck: supple, no adenopathy, no thyromegaly, no JVD CVS/Heart: RRR, normal S1S2, pulses present bilaterally Chest/Lungs: CTA B, Symmetrical chest expansion, good air entry bilaterally GI/Abdomen: soft, NTND, good bowel sounds, no guarding or rebound /Bladder: no suprapubic tenderness, no CVA or paraspinal tenderness Extermity/Skin: no c/c/e, no obvious rash MSK: sROM x 4 Neuro: no focal deficits Psych: calm and confused - Constitutional Vitals: Temp Pulse Resp BP Pulse Ox 97.9 F 87 18 150/71 89 11/11/18 11:49 11/11/18 11:48 11/11/18 11:49 11/11/18 11:48 11/11/18 11:48 Results - Labs CBC & Chem 7: 11/09/18 06:36 11/11/18 05:05 Labs: Laboratory Last Values WBC 5.2 K/mm3 (4.5-11.0) 11/09/18 06:36 RBC 3.50 M/mm3 (3.65-5.03) L 11/09/18 06:36 Hgb 10.1 gm/dl (10.1-14.3) 11/09/18 06:36 Hct 30.1 % (30.3-42.9) L 11/09/18 06:36 MCV 86 fl (79-97) 11/09/18 06:36 MCH 29 pg (28-32) 11/09/18 06:36 MCHC 34 % (30-34) 11/09/18 06:36 RDW 14.2 % (13.2-15.2) 11/09/18 06:36 Plt Count 313 K/mm3 (140-440) 11/09/18 06:36 Lymph % (Auto) 16.4 % (13.4-35.0) 11/09/18 06:36 [place] % (Auto) 9.8 % (0.0-7.3) H 11/09/18 06:36 Eos % (Auto) 11.8 % (0.0-4.3) H 11/09/18 06:36 Baso % (Auto) 1.3 % (0.0-1.8) 11/09/18 06:36 Lymph # 0.9 K/mm3 (1.2-5.4) L 11/09/18 06:36 [place] # 0.5 K/mm3 (0.0-0.8) 11/09/18 06:36 Eos # 0.6 K/mm3 (0.0-0.4) H 11/09/18 06:36 Baso # 0.1 K/mm3 (0.0-0.1) 11/09/18 06:36 Seg Neutrophils % 60.7 % (40.0-70.0) 11/09/18 06:36 Seg Neutrophils # 3.1 K/mm3 (1.8-7.7) 11/09/18 06:36 Sodium 143 mmol/L (137-145) 11/11/18 05:05 Potassium 3.8 mmol/L (3.6-5.0) 11/11/18 05:05 Chloride 110.4 mmol/L (98-107) H 11/11/18 05:05 Carbon Dioxide 19 mmol/L (22-30) L 11/11/18 05:05 17 mmol/L 11/11/18 05:05 BUN 25 mg/dL (7-17) H 11/11/18 05:05 3.1 mg/dL (0.7-1.2) H 11/11/18 05:05 Estimated GFR 14 ml/min 11/11/18 05:05 8 % 11/11/18 05:05 Glucose 91 mg/dL (65-100) 11/11/18 05:05 POC Glucose 118 (70-105) H 11/08/18 19:04 5.6 % (4-6) 11/08/18 21:35 Calcium 9.0 mg/dL (8.4-10.2) 11/11/18 05:05 Magnesium 1.80 mg/dL (1.7-2.3) 11/10/18 05:26 < 0.20 mg/dL (0.1-1.2) 11/09/18 06:36 AST 13 units/L (5-40) 11/09/18 06:36 ALT 8 units/L (7-56) 11/09/18 06:36 53 units/L (35-129) 11/09/18 06:36 0.012 ng/mL (0.00-0.029) 11/08/18 16:54 5.6 g/dL (6.3-8.2) L 11/09/18 06:36 2.9 g/dL (3.9-5) L 11/09/18 06:36 1.1 % 11/09/18 06:36 Yellow (Yellow) 11/08/18 12:38 Cloudy (Clear) 11/08/18 12:38 5.0 (5.0-7.0) 11/08/18 12:38 Ur Specific [place] 1.021 (1.003-1.030) 11/08/18 12:38 30 mg/dl mg/dL (Negative) 11/08/18 12:38 Neg mg/dL (Negative) 11/08/18 12:38 Neg mg/dL (Negative) 11/08/18 12:38 Lg (Negative) 11/08/18 12:38 Neg (Negative) 11/08/18 12:38 Neg (Negative) 11/08/18 12:38 < 2.0 mg/dL (<2.0) 11/08/18 12:38 Ur Leukocyte Esterase Tr (Negative) 11/08/18 12:38 2.0 /HPF (0.0-6.0) 11/08/18 12:38 5.0 /HPF (0.0-6.0) 11/08/18 12:38 U Epithel Cells (Auto) 15.0 /HPF (0-13.0) H 11/08/18 12:38 1+ /HPF (Negative) 11/08/18 12:38 3+ /HPF 11/08/18 12:38 Active Medications - Current Medications Current Medications: Generic Name Dose Route Start Last Admin Trade Name Klausq PRN Reason Stop Dose Admin Acetaminophen 650 mg 11/08/18 21:25 Tylenol PO Q4H PRN Pain MILD(1-3)/Fever >100.5/GLASS Amlodipine Besylate 10 mg 11/09/18 18:00 11/10/18 20:07 Norvasc PO 10 mg QPM SUMMER Administration Ascorbic Acid 500 mg 11/09/18 10:00 11/11/18 09:26 Vitamin C PO 500 mg DAILY SUMMER Administration Cholecalciferol 400 unit 11/09/18 10:00 11/11/18 09:25 Vitamin D3 PO 400 unit DAILY SUMMER Administration Dextrose/Sodium Chloride 1,000 mls @ 100 mls/hr 11/08/18 22:00 11/11/18 11:12 D5ns IV 100 mls/hr DIRECT SUMMER Administration Memantine 10 mg 11/08/18 22:00 11/11/18 09:25 Namenda PO 10 mg Q12HR SUMMER Administration Morphine Sulfate 2 mg 11/08/18 21:25 Morphine IV Q4H PRN Pain, Moderate (4-6) Ondansetron HCl 4 mg 11/08/18 21:25 Zofran IV Q8H PRN Nausea And Vomiting Oxycodone/Acetaminophen 1 tab 11/08/18 21:25 Percocet 5/325 PO Q6H PRN Pain, Moderate (4-6) Sodium Chloride 10 ml 11/08/18 22:00 11/11/18 09:26 Sodium Chloride Flush Syringe 10 Ml IV 10 ml BID SUMMER Administration Sodium Chloride 10 ml 11/08/18 21:25 Sodium Chloride Flush Syringe 10 Ml IV PRN PRN LINE FLUSH Verapamil HCl 240 mg 11/09/18 10:00 11/11/18 09:25 Calan Sr PO 240 mg DAILY SUMMER Administration Vitamin E 400 unit 11/09/18 10:00 11/11/18 09:25 Vitamin E Cap PO 400 unit DAILY SUMMER Administration
--- NOTE | 2018-11-11 14:42 | Treadmill Report ---
INDICATION: Chest pain. ORDERING PHYSICIAN: Paulo Cannon MD FINDINGS: There is no scintigraphic evidence of myocardial ischemia. The left ventricle is normal in size and systolic function. The left ventricular ejection fraction is measured at 60%. CONCLUSION: Normal perfusion scan. JOB# [id number] RICH/ISAI
--- NOTE | 2018-11-11 16:30 | Progress Note ---
Assessment and Plan - Patient Problems (1) Hyperkalemia Current Visit: Yes Status: Acute Plan to address problem: Potassium improved to normal (2) Metabolic acidosis Current Visit: Yes Status: Acute Plan to address problem: Acidosis related to uremia. Bicarbonate still a bit low. 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 Suspect NSAID induced nephropathy superimposed. Kidney function improving with volume repletion. Ultrasound shows increased echogenicity. Avoid NSAIDs and other potential nephrotoxins. Discussed avoiding NSAIDs in detail with the son. Follow-up electrolytes and renal function (4) Chest pain Current Visit: Yes Status: Acute Plan to address problem: Management by server support technician. Follow up Stress test report (5) Dementia Current Visit: Yes Status: Acute Plan to address problem: Management by primary attending Subjective Date of service: 11/11/18 Principal diagnosis: kidney injury Interval history: Patient seen lying in bed. Son at bedside. No complaints. No nausea or vomiting. No pain Objective - Exam Narrative Exam: Elderly female lying in bed in no acute distress HEENT: NCAT, pink oral mucous membrane Neck: Supple, no venous distention CVS: S1S2 RRR with no murmur, rub or gallop Chest: Clear to auscultation Abdomen: Protuberant, soft, nontender, bowel sounds are present Extremities: No edema Neuro: Awake, alert no focal deficits - Vital Signs Vital signs: Vital Signs - 12hr 11/11/18 11/11/18 11/11/18 08:35 11:48 11:49 Temperature 97.9 F 97.9 F 97.9 F Pulse Rate 103 H 87 Respiratory 18 18 18 Rate Blood Pressure 156/71 150/71 O2 Sat by Pulse 91 89 Oximetry 11/11/18 15:41 Temperature 98.8 F Pulse Rate 77 Respiratory 20 Rate Blood Pressure 136/61 O2 Sat by Pulse 94 Oximetry - Lab 11/09/18 06:36 11/11/18 05:05 Most recent lab results Calcium 9.0 mg/dL (8.4-10.2) 11/11/18 05:05 Magnesium 1.80 mg/dL (1.7-2.3) 11/10/18 05:26 Medications & Allergies - Medications Allergies/Adverse Reactions: Allergies No Known Allergies Allergy (Verified 11/08/18 11:32) Home Medications: Home Medications Medication Instructions Recorded Confirmed Last Taken Type amLODIPine [Norvasc] 10 mg PO QPM 12/06/13 11/08/18 Unknown History Lansoprazole [Prevacid] 30 mg PO DAILY 07/24/15 11/08/18 Unknown History Vitamin E 400 unit PO DAILY 07/24/15 11/08/18 Unknown History Alendronate Sodium [Fosamax] 70 mg PO QWEEK 11/08/18 11/08/18 Unknown History Ascorbic Acid [Vitamin C with Violeta 500 mg PO DAILY 11/08/18 11/08/18 Unknown History Hips] Cholecalciferol Vit D3 [Vitamin D3 400 unit PO DAILY 11/08/18 11/08/18 Unknown History 400 UNIT TAB] Glucosamine Sulfate [Cidatrine] 1,000 mg PO DAILY 11/08/18 11/08/18 Unknown History Memantine HCl [Namenda Xr] 28 mg PO DAILY 11/08/18 11/08/18 Unknown History Multivit-Min/Iron/Folic/Lutein 1 each PO DAILY 11/08/18 11/08/18 Unknown History [Centrum Silver Women Tablet] Naproxen Sodium [Aleve] 220 mg PO DAILY 11/08/18 11/08/18 Unknown History Olmesartan (Nf) [Benicar (Nf)] 40 mg PO QDAY 11/08/18 11/08/18 Unknown History Verapamil ER [Calan Sr] 240 mg PO DAILY 11/08/18 11/08/18 Unknown History Active Medications: Generic Name Dose Route Start Last Admin Trade Name Klausq PRN Reason Stop Dose Admin Acetaminophen 650 mg 11/08/18 21:25 Tylenol PO Q4H PRN Pain MILD(1-3)/Fever >100.5/GLASS Amlodipine Besylate 10 mg 11/09/18 18:00 11/10/18 20:07 Norvasc PO 10 mg QPM SUMMER Administration Ascorbic Acid 500 mg 11/09/18 10:00 11/11/18 09:26 Vitamin C PO 500 mg DAILY SUMMER Administration Cholecalciferol 400 unit 11/09/18 10:00 11/11/18 09:25 Vitamin D3 PO 400 unit DAILY SUMMER Administration Dextrose/Sodium Chloride 1,000 mls @ 75 mls/hr 11/11/18 15:00 D5/0.45ns IV DIRECT SUMMER Memantine 10 mg 11/08/18 22:00 11/11/18 09:25 Namenda PO 10 mg Q12HR SUMMER Administration Morphine Sulfate 2 mg 11/08/18 21:25 Morphine IV Q4H PRN Pain, Moderate (4-6) Ondansetron HCl 4 mg 11/08/18 21:25 Zofran IV Q8H PRN Nausea And Vomiting Oxycodone/Acetaminophen 1 tab 11/08/18 21:25 Percocet 5/325 PO Q6H PRN Pain, Moderate (4-6) Sodium Chloride 10 ml 11/08/18 22:00 11/11/18 09:26 Sodium Chloride Flush Syringe 10 Ml IV 10 ml BID SUMMER Administration Sodium Chloride 10 ml 11/08/18 21:25 Sodium Chloride Flush Syringe 10 Ml IV PRN PRN LINE FLUSH Verapamil HCl 240 mg 11/09/18 10:00 11/11/18 09:25 Calan Sr PO 240 mg DAILY SUMMER Administration Vitamin E 400 unit 11/09/18 10:00 11/11/18 09:25 Vitamin E Cap PO 400 unit DAILY SUMMER Administration
[2018-11-11] MEDS: NORVASC PO SCH (17:56)
[2018-11-11] MEDS: D5/0.45NS 1,000 ML IV SCH (19:46)
[2018-11-12 07:06] LABS: Calcium 8.8 mg/dL (8.4-10.2)
--- NOTE | 2018-11-12 08:36 | Progress Note ---
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 Suspect NSAID induced nephropathy superimposed. Kidney function improving with volume repletion. Ultrasound shows increased echogenicity. Avoid NSAIDs and other potential nephrotoxins. Follow-up electrolytes and renal function (2) Hyperkalemia Current Visit: Yes Status: Acute Plan to address problem: Potassium improved to normal (3) Metabolic acidosis Current Visit: Yes Status: Acute Plan to address problem: due to SYL and hyperchloremic met acidosis. cont D5 1/2 NS (4) Dementia Current Visit: Yes Status: Acute Plan to address problem: Management by primary attending (5) Chest pain Current Visit: Yes Status: Acute Plan to address problem: Management by automatic dispenser mechanic. Follow up Stress test report Subjective Date of service: 11/12/18 Principal diagnosis: kidney injury Interval history: Pt awake, alert, in NAD Objective - Vital Signs Vital signs: Vital Signs - 12hr 11/11/18 11/11/18 11/12/18 21:00 21:05 02:00 Temperature 98.7 F 98.6 F Pulse Rate 94 H 98 H Pulse Rate [ 90 Radial] Respiratory 18 20 18 Rate Blood Pressure 154/66 Blood Pressure 144/72 [Right] O2 Sat by Pulse 92 92 94 Oximetry 11/12/18 07:48 Temperature 98.2 F Pulse Rate 93 H Pulse Rate [ Radial] Respiratory 20 Rate Blood Pressure 130/49 Blood Pressure [Right] O2 Sat by Pulse 91 Oximetry - General Appearance General appearance: well-developed, appears stated age EENT: ATNC, PERRL, mucous membranes moist Neck: no JVD Respiratory: Present: Clear to Ascultation Cardiology: regular, S1S2 Gastrointestinal: normoactive bowel sounds Integumentary: no rash, other (no edema ) Neurologic: no focal deficit, alert and oriented x3, strength 5/5, CN 3-12 intact Psychiatric: mood/affect appropriate, cooperative - Lab 11/09/18 06:36 11/12/18 05:55 Most recent lab results Calcium 8.8 mg/dL (8.4-10.2) 11/12/18 05:55 Magnesium 1.80 mg/dL (1.7-2.3) 11/10/18 05:26 Medications & Allergies - Medications Allergies/Adverse Reactions: Allergies No Known Allergies Allergy (Verified 11/08/18 11:32) Home Medications: Home Medications Medication Instructions Recorded Confirmed Last Taken Type amLODIPine [Norvasc] 10 mg PO QPM 12/06/13 11/08/18 Unknown History Lansoprazole [Prevacid] 30 mg PO DAILY 07/24/15 11/08/18 Unknown History Vitamin E 400 unit PO DAILY 07/24/15 11/08/18 Unknown History Alendronate Sodium [Fosamax] 70 mg PO QWEEK 11/08/18 11/08/18 Unknown History Ascorbic Acid [Vitamin C with Violeta 500 mg PO DAILY 11/08/18 11/08/18 Unknown History Hips] Cholecalciferol Vit D3 [Vitamin D3 400 unit PO DAILY 11/08/18 11/08/18 Unknown History 400 UNIT TAB] Glucosamine Sulfate [Cidatrine] 1,000 mg PO DAILY 11/08/18 11/08/18 Unknown History Memantine HCl [Namenda Xr] 28 mg PO DAILY 11/08/18 11/08/18 Unknown History Multivit-Min/Iron/Folic/Lutein 1 each PO DAILY 11/08/18 11/08/18 Unknown History [Centrum Silver Women Tablet] Naproxen Sodium [Aleve] 220 mg PO DAILY 11/08/18 11/08/18 Unknown History Olmesartan (Nf) [Benicar (Nf)] 40 mg PO QDAY 11/08/18 11/08/18 Unknown History Verapamil ER [Calan Sr] 240 mg PO DAILY 11/08/18 11/08/18 Unknown History Active Medications: Generic Name Dose Route Start Last Admin Trade Name Seferino PRN Reason Stop Dose Admin Acetaminophen 650 mg 11/08/18 21:25 Tylenol PO Q4H PRN Pain MILD(1-3)/Fever >100.5/GLASS Amlodipine Besylate 10 mg 11/09/18 18:00 11/11/18 17:56 Norvasc PO 10 mg QPM SUMMER Administration Ascorbic Acid 500 mg 11/09/18 10:00 11/11/18 09:26 Vitamin C PO 500 mg DAILY SUMMER Administration Cholecalciferol 400 unit 11/09/18 10:00 11/11/18 09:25 Vitamin D3 PO 400 unit DAILY SUMMER Administration Dextrose/Sodium Chloride 1,000 mls @ 75 mls/hr 11/11/18 15:00 11/11/18 19:46 D5/0.45ns IV 75 mls/hr DIRECT SUMMER Administration Memantine 10 mg 11/08/18 22:00 11/11/18 22:00 Namenda PO 10 mg Q12HR SUMMER Administration Morphine Sulfate 2 mg 11/08/18 21:25 Morphine IV Q4H PRN Pain, Moderate (4-6) Ondansetron HCl 4 mg 11/08/18 21:25 Zofran IV Q8H PRN Nausea And Vomiting Oxycodone/Acetaminophen 1 tab 11/08/18 21:25 Percocet 5/325 PO Q6H PRN Pain, Moderate (4-6) Sodium Chloride 10 ml 11/08/18 22:00 11/11/18 22:00 Sodium Chloride Flush Syringe 10 Ml IV Not Given BID SUMMER Sodium Chloride 10 ml 11/08/18 21:25 Sodium Chloride Flush Syringe 10 Ml IV PRN PRN LINE FLUSH Verapamil HCl 240 mg 11/09/18 10:00 11/11/18 09:25 Calan Sr PO 240 mg DAILY SUMMER Administration Vitamin E 400 unit 11/09/18 10:00 11/11/18 09:25 Vitamin E Cap PO 400 unit DAILY SUMMER Administration
--- NOTE | 2018-11-12 09:41 | Progress Note ---
Assessment and Plan Assessment and plan: Patient is a 83 yo woman with a history of Dementia, CKD 3 with baseline Cr of 1.1, OA on NSAIDS, hypertension and Breast cancer who presented to [facility] ED with chest pains and sob. She was unable to do stress test due to Dementia. 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 Cr 5.1-->4.4-->3.7-->3.1-->2.8 today. Last Cr in our EMR was 2016 was 1.1 History Interval history: Patient was seen and examined. Follow-up on current diagnosis CP, renal failure. No Overnight events reported to me. Patient denies any chest pain, shortness breath, nausea/vomiting or severe headaches. Imaging, nursing note, chart, labs and old chart reviewed. Discussed with patient. Son Julius at bedside. Hospitalist Physical - Physical exam Narrative exam: Gen: thin frail, nad, awake and alert and confused HEENT: NCAT, EOMI, PERRL, OP Clear Neck: supple, no adenopathy, no thyromegaly, no JVD CVS/Heart: RRR, normal S1S2, pulses present bilaterally Chest/Lungs: CTA B, Symmetrical chest expansion, good air entry bilaterally GI/Abdomen: soft, NTND, good bowel sounds, no guarding or rebound /Bladder: no suprapubic tenderness, no CVA or paraspinal tenderness Extermity/Skin: no c/c/e, no obvious rash MSK: sROM x 4 Neuro: no focal deficits Psych: calm and confused - Constitutional Vitals: Temp Pulse Resp BP Pulse Ox 98.2 F 93 H 20 130/49 91 11/12/18 07:48 11/12/18 07:48 11/12/18 07:48 11/12/18 07:48 11/12/18 07:48 Results - Labs CBC & Chem 7: 11/09/18 06:36 11/12/18 05:55 Labs: Laboratory Last Values WBC 5.2 K/mm3 (4.5-11.0) 11/09/18 06:36 RBC 3.50 M/mm3 (3.65-5.03) L 11/09/18 06:36 Hgb 10.1 gm/dl (10.1-14.3) 11/09/18 06:36 Hct 30.1 % (30.3-42.9) L 11/09/18 06:36 MCV 86 fl (79-97) 11/09/18 06:36 MCH 29 pg (28-32) 11/09/18 06:36 MCHC 34 % (30-34) 11/09/18 06:36 RDW 14.2 % (13.2-15.2) 11/09/18 06:36 Plt Count 313 K/mm3 (140-440) 11/09/18 06:36 Lymph % (Auto) 16.4 % (13.4-35.0) 11/09/18 06:36 [place] % (Auto) 9.8 % (0.0-7.3) H 11/09/18 06:36 Eos % (Auto) 11.8 % (0.0-4.3) H 11/09/18 06:36 Baso % (Auto) 1.3 % (0.0-1.8) 11/09/18 06:36 Lymph # 0.9 K/mm3 (1.2-5.4) L 11/09/18 06:36 [place] # 0.5 K/mm3 (0.0-0.8) 11/09/18 06:36 Eos # 0.6 K/mm3 (0.0-0.4) H 11/09/18 06:36 Baso # 0.1 K/mm3 (0.0-0.1) 11/09/18 06:36 Seg Neutrophils % 60.7 % (40.0-70.0) 11/09/18 06:36 Seg Neutrophils # 3.1 K/mm3 (1.8-7.7) 11/09/18 06:36 Sodium 141 mmol/L (137-145) 11/12/18 05:55 Potassium 3.6 mmol/L (3.6-5.0) 11/12/18 05:55 Chloride 107.8 mmol/L (98-107) H 11/12/18 05:55 Carbon Dioxide 20 mmol/L (22-30) L 11/12/18 05:55 17 mmol/L 11/12/18 05:55 BUN 20 mg/dL (7-17) H 11/12/18 05:55 2.8 mg/dL (0.7-1.2) H 11/12/18 05:55 Estimated GFR 16 ml/min 11/12/18 05:55 7 % 11/12/18 05:55 Glucose 78 mg/dL (65-100) 11/12/18 05:55 POC Glucose 118 (70-105) H 11/08/18 19:04 5.6 % (4-6) 11/08/18 21:35 Calcium 8.8 mg/dL (8.4-10.2) 11/12/18 05:55 Magnesium 1.80 mg/dL (1.7-2.3) 11/10/18 05:26 < 0.20 mg/dL (0.1-1.2) 11/09/18 06:36 AST 13 units/L (5-40) 11/09/18 06:36 ALT 8 units/L (7-56) 11/09/18 06:36 53 units/L (35-129) 11/09/18 06:36 0.012 ng/mL (0.00-0.029) 11/08/18 16:54 5.6 g/dL (6.3-8.2) L 11/09/18 06:36 2.9 g/dL (3.9-5) L 11/09/18 06:36 1.1 % 11/09/18 06:36 Yellow (Yellow) 11/08/18 12:38 Cloudy (Clear) 11/08/18 12:38 5.0 (5.0-7.0) 11/08/18 12:38 Ur Specific [place] 1.021 (1.003-1.030) 11/08/18 12:38 30 mg/dl mg/dL (Negative) 11/08/18 12:38 Neg mg/dL (Negative) 11/08/18 12:38 Neg mg/dL (Negative) 11/08/18 12:38 Lg (Negative) 11/08/18 12:38 Neg (Negative) 11/08/18 12:38 Neg (Negative) 11/08/18 12:38 < 2.0 mg/dL (<2.0) 11/08/18 12:38 Ur Leukocyte Esterase Tr (Negative) 11/08/18 12:38 2.0 /HPF (0.0-6.0) 11/08/18 12:38 5.0 /HPF (0.0-6.0) 11/08/18 12:38 U Epithel Cells (Auto) 15.0 /HPF (0-13.0) H 11/08/18 12:38 1+ /HPF (Negative) 11/08/18 12:38 3+ /HPF 11/08/18 12:38 Active Medications - Current Medications Current Medications: Generic Name Dose Route Start Last Admin Trade Name Freq PRN Reason Stop Dose Admin Acetaminophen 650 mg 11/08/18 21:25 Tylenol PO Q4H PRN Pain MILD(1-3)/Fever >100.5/GLASS Amlodipine Besylate 10 mg 11/09/18 18:00 11/11/18 17:56 Norvasc PO 10 mg QPM SUMMER Administration Ascorbic Acid 500 mg 11/09/18 10:00 11/11/18 09:26 Vitamin C PO 500 mg DAILY SUMMER Administration Cholecalciferol 400 unit 11/09/18 10:00 11/11/18 09:25 Vitamin D3 PO 400 unit DAILY SUMMER Administration Dextrose/Sodium Chloride 1,000 mls @ 75 mls/hr 11/11/18 15:00 11/11/18 19:46 D5/0.45ns IV 75 mls/hr DIRECT SUMMER Administration Memantine 10 mg 11/08/18 22:00 11/11/18 22:00 Namenda PO 10 mg Q12HR SUMMER Administration Morphine Sulfate 2 mg 11/08/18 21:25 Morphine IV Q4H PRN Pain, Moderate (4-6) Ondansetron HCl 4 mg 11/08/18 21:25 Zofran IV Q8H PRN Nausea And Vomiting Oxycodone/Acetaminophen 1 tab 11/08/18 21:25 Percocet 5/325 PO Q6H PRN Pain, Moderate (4-6) Sodium Chloride 10 ml 11/08/18 22:00 11/11/18 22:00 Sodium Chloride Flush Syringe 10 Ml IV Not Given BID SUMMER Sodium Chloride 10 ml 11/08/18 21:25 Sodium Chloride Flush Syringe 10 Ml IV PRN PRN LINE FLUSH Verapamil HCl 240 mg 11/09/18 10:00 11/11/18 09:25 Calan Sr PO 240 mg DAILY SUMMER Administration Vitamin E 400 unit 11/09/18 10:00 11/11/18 09:25 Vitamin E Cap PO 400 unit DAILY SUMMER Administration
[2018-11-12] MEDS: D5/0.45NS 1,000 ML IV SCH ×2 (10:47→22:07)
[2018-11-12] MEDS: VITAMIN C PO SCH (10:47)
[2018-11-12] MEDS: SODIUM CHLORIDE FLUSH SYRINGE 10 ML IV SCH ×2 (10:48→22:05)
[2018-11-12] MEDS: CALAN SR PO SCH (11:17)
[2018-11-12] MEDS: VITAMIN E CAP PO SCH (11:17)
[2018-11-12] MEDS: VITAMIN D3 PO SCH (11:17)
[2018-11-12] MEDS: NAMENDA PO SCH ×2 (11:17→22:04)
[2018-11-12] MEDS: NORVASC PO SCH (17:28)
[2018-11-13 07:30] LABS: Calcium 8.6 mg/dL (8.4-10.2)
--- NOTE | 2018-11-13 08:19 | Progress Note ---
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 Suspect NSAID induced nephropathy superimposed. Kidney function improving with volume repletion. Ultrasound shows increased echogenicity. Avoid NSAIDs and other potential nephrotoxins. Follow-up electrolytes and renal function off IVF (2) Hyperkalemia Current Visit: Yes Status: Acute Plan to address problem: Potassium now low, will supplement with KDur (3) Metabolic acidosis Current Visit: Yes Status: Acute Plan to address problem: due to SYL and hyperchloremic met acidosis. 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 Follow up Stress test report Subjective Date of service: 11/13/18 Principal diagnosis: kidney injury Interval history: Pt awake, alert, in NAD Objective - Vital Signs Vital signs: Vital Signs - 12hr 11/13/18 03:39 Temperature 98.5 F Pulse Rate 91 H Respiratory 19 Rate Blood Pressure 125/48 O2 Sat by Pulse 90 Oximetry - General Appearance General appearance: well-developed, well-nourished, appears stated age EENT: ATNC, PERRL, mucous membranes moist Neck: no JVD Respiratory: Present: Clear to Ascultation Cardiology: regular, S1S2 Gastrointestinal: normoactive bowel sounds Integumentary: no rash, other (no edema ) Neurologic: no focal deficit, alert and oriented x3, strength 5/5, CN 3-12 intact Psychiatric: mood/affect appropriate, cooperative - Lab 11/09/18 06:36 11/13/18 06:53 Most recent lab results Calcium 8.6 mg/dL (8.4-10.2) 11/13/18 06:53 Magnesium 1.80 mg/dL (1.7-2.3) 11/10/18 05:26 Medications & Allergies - Medications Allergies/Adverse Reactions: Allergies No Known Allergies Allergy (Verified 11/08/18 11:32) Home Medications: Home Medications Medication Instructions Recorded Confirmed Last Taken Type amLODIPine [Norvasc] 10 mg PO QPM 12/06/13 11/08/18 Unknown History Lansoprazole [Prevacid] 30 mg PO DAILY 07/24/15 11/08/18 Unknown History Vitamin E 400 unit PO DAILY 07/24/15 11/08/18 Unknown History Alendronate Sodium [Fosamax] 70 mg PO QWEEK 11/08/18 11/08/18 Unknown History Ascorbic Acid [Vitamin C with Violeta 500 mg PO DAILY 11/08/18 11/08/18 Unknown History Hips] Cholecalciferol Vit D3 [Vitamin D3 400 unit PO DAILY 11/08/18 11/08/18 Unknown History 400 UNIT TAB] Glucosamine Sulfate [Cidatrine] 1,000 mg PO DAILY 11/08/18 11/08/18 Unknown History Memantine HCl [Namenda Xr] 28 mg PO DAILY 11/08/18 11/08/18 Unknown History Multivit-Min/Iron/Folic/Lutein 1 each PO DAILY 11/08/18 11/08/18 Unknown History [Centrum Silver Women Tablet] Naproxen Sodium [Aleve] 220 mg PO DAILY 11/08/18 11/08/18 Unknown History Olmesartan (Nf) [Benicar (Nf)] 40 mg PO QDAY 11/08/18 11/08/18 Unknown History Verapamil ER [Calan Sr] 240 mg PO DAILY 11/08/18 11/08/18 Unknown History Active Medications: Generic Name Dose Route Start Last Admin Trade Name Freq PRN Reason Stop Dose Admin Acetaminophen 650 mg 11/08/18 21:25 Tylenol PO Q4H PRN Pain MILD(1-3)/Fever >100.5/GLASS Amlodipine Besylate 10 mg 11/09/18 18:00 11/12/18 17:28 Norvasc PO 10 mg QPM SUMMER Administration Ascorbic Acid 500 mg 11/09/18 10:00 11/12/18 10:47 Vitamin C PO 500 mg DAILY SUMMER Administration Cholecalciferol 400 unit 11/09/18 10:00 11/12/18 11:17 Vitamin D3 PO 400 unit DAILY SUMMER Administration Memantine 10 mg 11/08/18 22:00 11/12/18 22:04 Namenda PO 10 mg Q12HR SUMMER Administration Morphine Sulfate 2 mg 11/08/18 21:25 Morphine IV Q4H PRN Pain, Moderate (4-6) Ondansetron HCl 4 mg 11/08/18 21:25 Zofran IV Q8H PRN Nausea And Vomiting Oxycodone/Acetaminophen 1 tab 11/08/18 21:25 Percocet 5/325 PO Q6H PRN Pain, Moderate (4-6) Sodium Chloride 10 ml 11/08/18 22:00 11/12/18 22:05 Sodium Chloride Flush Syringe 10 Ml IV 10 ml BID SUMMER Administration Sodium Chloride 10 ml 11/08/18 21:25 Sodium Chloride Flush Syringe 10 Ml IV PRN PRN LINE FLUSH Verapamil HCl 240 mg 11/09/18 10:00 11/12/18 11:17 Calan Sr PO 240 mg DAILY SUMMRE Administration Vitamin E 400 unit 11/09/18 10:00 11/12/18 11:17 Vitamin E Cap PO 400 unit DAILY SUMMER Administration
[2018-11-13] MEDS ORDERED: K-DUR PO ONE ×2 (08:20→11:00)
[2018-11-13] MEDS: VITAMIN C PO SCH (11:30)
[2018-11-13] MEDS: CALAN SR PO SCH (11:31)
[2018-11-13] MEDS: VITAMIN E CAP PO SCH (11:32)
[2018-11-13] MEDS: NAMENDA PO SCH ×2 (11:32→22:25)
[2018-11-13] MEDS: SODIUM CHLORIDE FLUSH SYRINGE 10 ML IV SCH ×2 (11:33→22:26)
--- NOTE | 2018-11-13 13:11 | Progress Note ---
Assessment and Plan Assessment and plan: Patient is a 83 yo woman with a history of Dementia, CKD 3 with baseline Cr of 1.1, OA on NSAIDS, hypertension and Breast cancer who presented to [facility] ED with chest pains and sob. She was unable to do stress test due to Dementia. 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 Last Cr in our EMR was 2016 was 1.1 History Interval history: Patient was seen and examined. Follow-up on current diagnosis CP, renal failure. No Overnight events reported to me. Patient denies any chest pain, shortness breath, nausea/vomiting or severe headaches. Imaging, nursing note, chart, labs and old chart reviewed. Discussed with patient. Son Julius at bedside. Hospitalist Physical - Physical exam Narrative exam: Gen: thin frail, nad, awake and alert and confused HEENT: NCAT, EOMI, PERRL, OP Clear Neck: supple, no adenopathy, no thyromegaly, no JVD CVS/Heart: RRR, normal S1S2, pulses present bilaterally Chest/Lungs: CTA B, Symmetrical chest expansion, good air entry bilaterally GI/Abdomen: soft, NTND, good bowel sounds, no guarding or rebound /Bladder: no suprapubic tenderness, no CVA or paraspinal tenderness Extermity/Skin: no c/c/e, no obvious rash MSK: sROM x 4 Neuro: no focal deficits Psych: calm and confused - Constitutional Vitals: Temp Pulse Resp BP Pulse Ox 98.5 F 83 19 140/59 90 11/13/18 03:39 11/13/18 11:31 11/13/18 03:39 11/13/18 11:31 11/13/18 03:39 Results - Labs CBC & Chem 7: 11/09/18 06:36 11/13/18 06:53 Labs: Laboratory Last Values WBC 5.2 K/mm3 (4.5-11.0) 11/09/18 06:36 RBC 3.50 M/mm3 (3.65-5.03) L 11/09/18 06:36 Hgb 10.1 gm/dl (10.1-14.3) 11/09/18 06:36 Hct 30.1 % (30.3-42.9) L 11/09/18 06:36 MCV 86 fl (79-97) 11/09/18 06:36 MCH 29 pg (28-32) 11/09/18 06:36 MCHC 34 % (30-34) 11/09/18 06:36 RDW 14.2 % (13.2-15.2) 11/09/18 06:36 Plt Count 313 K/mm3 (140-440) 11/09/18 06:36 Lymph % (Auto) 16.4 % (13.4-35.0) 11/09/18 06:36 [place] % (Auto) 9.8 % (0.0-7.3) H 11/09/18 06:36 Eos % (Auto) 11.8 % (0.0-4.3) H 11/09/18 06:36 Baso % (Auto) 1.3 % (0.0-1.8) 11/09/18 06:36 Lymph # 0.9 K/mm3 (1.2-5.4) L 11/09/18 06:36 [place] # 0.5 K/mm3 (0.0-0.8) 11/09/18 06:36 Eos # 0.6 K/mm3 (0.0-0.4) H 11/09/18 06:36 Baso # 0.1 K/mm3 (0.0-0.1) 11/09/18 06:36 Seg Neutrophils % 60.7 % (40.0-70.0) 11/09/18 06:36 Seg Neutrophils # 3.1 K/mm3 (1.8-7.7) 11/09/18 06:36 Sodium 141 mmol/L (137-145) 11/13/18 06:53 Potassium 3.4 mmol/L (3.6-5.0) L 11/13/18 06:53 Chloride 108.7 mmol/L (98-107) H 11/13/18 06:53 Carbon Dioxide 19 mmol/L (22-30) L 11/13/18 06:53 17 mmol/L 11/13/18 06:53 BUN 16 mg/dL (7-17) 11/13/18 06:53 2.5 mg/dL (0.7-1.2) H 11/13/18 06:53 Estimated GFR 18 ml/min 11/13/18 06:53 6 % 11/13/18 06:53 Glucose 97 mg/dL (65-100) 11/13/18 06:53 POC Glucose 118 (70-105) H 11/08/18 19:04 5.6 % (4-6) 11/08/18 21:35 Calcium 8.6 mg/dL (8.4-10.2) 11/13/18 06:53 Magnesium 1.80 mg/dL (1.7-2.3) 11/10/18 05:26 < 0.20 mg/dL (0.1-1.2) 11/09/18 06:36 AST 13 units/L (5-40) 11/09/18 06:36 ALT 8 units/L (7-56) 11/09/18 06:36 53 units/L (35-129) 11/09/18 06:36 0.012 ng/mL (0.00-0.029) 11/08/18 16:54 5.6 g/dL (6.3-8.2) L 11/09/18 06:36 2.9 g/dL (3.9-5) L 11/09/18 06:36 1.1 % 11/09/18 06:36 Yellow (Yellow) 11/08/18 12:38 Cloudy (Clear) 11/08/18 12:38 5.0 (5.0-7.0) 11/08/18 12:38 Ur Specific [place] 1.021 (1.003-1.030) 11/08/18 12:38 30 mg/dl mg/dL (Negative) 11/08/18 12:38 Neg mg/dL (Negative) 11/08/18 12:38 Neg mg/dL (Negative) 11/08/18 12:38 Lg (Negative) 11/08/18 12:38 Neg (Negative) 11/08/18 12:38 Neg (Negative) 11/08/18 12:38 < 2.0 mg/dL (<2.0) 11/08/18 12:38 Ur Leukocyte Esterase Tr (Negative) 11/08/18 12:38 2.0 /HPF (0.0-6.0) 11/08/18 12:38 5.0 /HPF (0.0-6.0) 11/08/18 12:38 U Epithel Cells (Auto) 15.0 /HPF (0-13.0) H 11/08/18 12:38 1+ /HPF (Negative) 11/08/18 12:38 3+ /HPF 11/08/18 12:38 Active Medications - Current Medications Current Medications: Generic Name Dose Route Start Last Admin Trade Name Freq PRN Reason Stop Dose Admin Acetaminophen 650 mg 11/08/18 21:25 Tylenol PO Q4H PRN Pain MILD(1-3)/Fever >100.5/GLASS Amlodipine Besylate 10 mg 11/09/18 18:00 11/12/18 17:28 Norvasc PO 10 mg QPM SUMMER Administration Ascorbic Acid 500 mg 11/09/18 10:00 11/13/18 11:30 Vitamin C PO 500 mg DAILY SUMMER Administration Cholecalciferol 400 unit 11/09/18 10:00 11/12/18 11:17 Vitamin D3 PO 400 unit DAILY SUMMER Administration Memantine 10 mg 11/08/18 22:00 11/13/18 11:32 Namenda PO 10 mg Q12HR SUMMER Administration Morphine Sulfate 2 mg 11/08/18 21:25 Morphine IV Q4H PRN Pain, Moderate (4-6) Ondansetron HCl 4 mg 11/08/18 21:25 Zofran IV Q8H PRN Nausea And Vomiting Oxycodone/Acetaminophen 1 tab 11/08/18 21:25 Percocet 5/325 PO Q6H PRN Pain, Moderate (4-6) Sodium Chloride 10 ml 11/08/18 22:00 11/13/18 11:33 Sodium Chloride Flush Syringe 10 Ml IV 10 ml BID SUMMER Administration Sodium Chloride 10 ml 11/08/18 21:25 Sodium Chloride Flush Syringe 10 Ml IV PRN PRN LINE FLUSH Verapamil HCl 240 mg 11/09/18 10:00 11/13/18 11:31 Calan Sr PO 240 mg DAILY SUMMER Administration Vitamin E 400 unit 11/09/18 10:00 11/13/18 11:32 Vitamin E Cap PO 400 unit DAILY SUMMER Administration
[2018-11-13] MEDS: VITAMIN D3 PO SCH (14:43)
[2018-11-13] MEDS: NORVASC PO SCH (18:31)
[2018-11-14 05:53] LABS: Calcium 9.4 mg/dL (8.4-10.2)
--- NOTE | 2018-11-14 08:52 | Progress Note ---
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 Suspect NSAID induced nephropathy superimposed. Kidney function appears to be stabilizing. Ultrasound shows increased echogenicity. Avoid NSAIDs and other potential nephrotoxins. Discussed avoiding NSAIDs in detail with the son. Okay to discharge home from renal standpoint. We'll follow up kidney function as an outpatient (2) Hyperkalemia Current Visit: Yes Status: Acute Plan to address problem: Potassium improved to normal (3) Metabolic acidosis Current Visit: Yes Status: Acute Plan to address problem: Acidosis related to uremia. Bicarbonate has improved. Follow bicarbonate (4) Chest pain Current Visit: Yes Status: Acute Plan to address problem: Management by medical technologist chief. Follow up Stress test report (5) Dementia Current Visit: Yes Status: Acute Plan to address problem: Management by primary attending Subjective Date of service: 11/14/18 Principal diagnosis: kidney injury Interval history: Patient seen lying in bed. No family at bedside. No complaints. No nausea or vomiting. No pain Objective - Exam Narrative Exam: Elderly female lying in bed in no acute distress HEENT: NCAT, pink oral mucous membrane Neck: Supple, no venous distention CVS: S1S2 RRR with no murmur, rub or gallop Chest: Clear to auscultation Abdomen: Protuberant, soft, nontender, bowel sounds are present Extremities: No edema Neuro: Awake, alert no focal deficits - Vital Signs Vital signs: Vital Signs - 12hr 11/13/18 11/13/18 11/13/18 22:00 22:25 23:25 Temperature Pulse Rate Respiratory 18 16 Rate Blood Pressure O2 Sat by Pulse 93 Oximetry 11/14/18 11/14/18 11/14/18 02:34 02:35 08:07 Temperature 98.6 F 98.6 F Pulse Rate 80 84 91 H Respiratory 20 16 Rate Blood Pressure 140/68 138/67 O2 Sat by Pulse 92 91 91 Oximetry - Lab 11/09/18 06:36 11/14/18 05:15 Most recent lab results Calcium 9.4 mg/dL (8.4-10.2) 11/14/18 05:15 Magnesium 1.80 mg/dL (1.7-2.3) 11/10/18 05:26 Medications & Allergies - Medications Allergies/Adverse Reactions: Allergies No Known Allergies Allergy (Verified 11/08/18 11:32) Home Medications: Home Medications Medication Instructions Recorded Confirmed Last Taken Type amLODIPine [Norvasc] 10 mg PO QPM 12/06/13 11/08/18 Unknown History Lansoprazole [Prevacid] 30 mg PO DAILY 07/24/15 11/08/18 Unknown History Vitamin E 400 unit PO DAILY 07/24/15 11/08/18 Unknown History Alendronate Sodium [Fosamax] 70 mg PO QWEEK 11/08/18 11/08/18 Unknown History Ascorbic Acid [Vitamin C with Violeta 500 mg PO DAILY 11/08/18 11/08/18 Unknown History Hips] Cholecalciferol Vit D3 [Vitamin D3 400 unit PO DAILY 11/08/18 11/08/18 Unknown History 400 UNIT TAB] Glucosamine Sulfate [Cidatrine] 1,000 mg PO DAILY 11/08/18 11/08/18 Unknown History Memantine HCl [Namenda Xr] 28 mg PO DAILY 11/08/18 11/08/18 Unknown History Multivit-Min/Iron/Folic/Lutein 1 each PO DAILY 11/08/18 11/08/18 Unknown History [Centrum Silver Women Tablet] Naproxen Sodium [Aleve] 220 mg PO DAILY 11/08/18 11/08/18 Unknown History Olmesartan (Nf) [Benicar (Nf)] 40 mg PO QDAY 11/08/18 11/08/18 Unknown History Verapamil ER [Calan Sr] 240 mg PO DAILY 11/08/18 11/08/18 Unknown History Active Medications: Generic Name Dose Route Start Last Admin Trade Name Seferino PRN Reason Stop Dose Admin Acetaminophen 650 mg 11/08/18 21:25 Tylenol PO Q4H PRN Pain MILD(1-3)/Fever >100.5/GLASS Amlodipine Besylate 10 mg 11/09/18 18:00 11/13/18 18:31 Norvasc PO Not Given QPM [facility] Ascorbic Acid 500 mg 11/09/18 10:00 11/13/18 11:30 Vitamin C PO 500 mg DAILY [facility] Administration Cholecalciferol 400 unit 11/09/18 10:00 11/13/18 14:43 Vitamin D3 PO 400 unit DAILY [facility] Administration Memantine 10 mg 11/08/18 22:00 11/13/18 22:25 Namenda PO 10 mg Q12HR [facility] Administration Morphine Sulfate 2 mg 11/08/18 21:25 Morphine IV Q4H PRN Pain, Moderate (4-6) Ondansetron HCl 4 mg 11/08/18 21:25 Zofran IV Q8H PRN Nausea And Vomiting Oxycodone/Acetaminophen 1 tab 11/08/18 21:25 11/13/18 22:25 Percocet 5/325 PO 1 tab Q6H PRN Administration Pain, Moderate (4-6) Sodium Chloride 10 ml 11/08/18 22:00 11/13/18 22:26 Sodium Chloride Flush Syringe 10 Ml IV 10 ml BID SUMMER Administration Sodium Chloride 10 ml 11/08/18 21:25 Sodium Chloride Flush Syringe 10 Ml IV PRN PRN LINE FLUSH Verapamil HCl 240 mg 11/09/18 10:00 11/13/18 11:31 Calan Sr PO 240 mg DAILY [facility] Administration Vitamin E 400 unit 11/09/18 10:00 11/13/18 11:32 Vitamin E Cap PO 400 unit DAILY SUMMER Administration
[2018-11-14] MEDS: NAMENDA PO SCH ×2 (10:28→22:09)
[2018-11-14] MEDS: CALAN SR PO SCH (10:28)
[2018-11-14] MEDS: VITAMIN D3 PO SCH (10:29)
[2018-11-14] MEDS: SODIUM CHLORIDE FLUSH SYRINGE 10 ML IV SCH ×2 (10:29→22:10)
[2018-11-14] MEDS: VITAMIN C PO SCH (10:29)
[2018-11-14] MEDS: VITAMIN E CAP PO SCH (10:29)
--- NOTE | 2018-11-14 11:46 | Progress Note ---
Assessment and Plan Assessment and plan: Patient is a 83 yo woman with a history of Dementia, CKD 3 with baseline Cr of 1.1, OA on NSAIDS, hypertension and Breast cancer who presented to [facility] ED with chest pains and sob. She was unable to do stress test due to Dementia. * pCXR showed COPD and no acute findings Chest pains, atypical, most likely costochrondritis, stress test negative ARF/CKD 3, tubular necrosis and vasomotor nephropathy: treat with IVF, monitor bmp closely, consulted Nephrology Moderate malnutrition: Brainer Metabolic acidosis: treat the renal failure, repeat bmp Hyperkalemia: stop the Losartan, give kayexalate Acute metabolic encephalopathy Advance Dementia Full code Renal consulted, input noted Renal u/s ordered, shows chronic changes stress test negative Renal function continues to improve, once CR becomes steady then possibly discharge Cr 5.1-->4.4-->3.7-->3.1-->2.8-->2.5--->2.6 today. Last Cr in our EMR was 2015 was 1.1, repeat BMP in am and not worsen then discharge home. History Interval history: Patient was seen and examined. Follow-up on current diagnosis CP, renal failure. No Overnight events reported to me. Patient denies any chest pain, shortness breath, nausea/vomiting or severe headaches. Imaging, nursing note, chart, labs and old chart reviewed. Discussed with patient. Son Julius not at bedside, he is having surgery today Hospitalist Physical - Physical exam Narrative exam: Gen: thin frail, nad, awake and alert and confused HEENT: NCAT, EOMI, PERRL, OP Clear Neck: supple, no adenopathy, no thyromegaly, no JVD CVS/Heart: RRR, normal S1S2, pulses present bilaterally Chest/Lungs: CTA B, Symmetrical chest expansion, good air entry bilaterally GI/Abdomen: soft, NTND, good bowel sounds, no guarding or rebound /Bladder: no suprapubic tenderness, no CVA or paraspinal tenderness Extermity/Skin: no c/c/e, no obvious rash MSK: sROM x 4 Neuro: no focal deficits Psych: calm and confused - Constitutional Vitals: Temp Pulse Resp BP Pulse Ox 98.6 F 91 H 16 138/67 91 11/14/18 08:07 11/14/18 08:07 11/14/18 08:07 11/14/18 08:07 11/14/18 08:07 Results - Labs CBC & Chem 7: 11/09/18 06:36 11/14/18 05:15 Labs: Laboratory Last Values WBC 5.2 K/mm3 (4.5-11.0) 11/09/18 06:36 RBC 3.50 M/mm3 (3.65-5.03) L 11/09/18 06:36 Hgb 10.1 gm/dl (10.1-14.3) 11/09/18 06:36 Hct 30.1 % (30.3-42.9) L 11/09/18 06:36 MCV 86 fl (79-97) 11/09/18 06:36 MCH 29 pg (28-32) 11/09/18 06:36 MCHC 34 % (30-34) 11/09/18 06:36 RDW 14.2 % (13.2-15.2) 11/09/18 06:36 Plt Count 313 K/mm3 (140-440) 11/09/18 06:36 Lymph % (Auto) 16.4 % (13.4-35.0) 11/09/18 06:36 [place] % (Auto) 9.8 % (0.0-7.3) H 11/09/18 06:36 Eos % (Auto) 11.8 % (0.0-4.3) H 11/09/18 06:36 Baso % (Auto) 1.3 % (0.0-1.8) 11/09/18 06:36 Lymph # 0.9 K/mm3 (1.2-5.4) L 11/09/18 06:36 [place] # 0.5 K/mm3 (0.0-0.8) 11/09/18 06:36 Eos # 0.6 K/mm3 (0.0-0.4) H 11/09/18 06:36 Baso # 0.1 K/mm3 (0.0-0.1) 11/09/18 06:36 Seg Neutrophils % 60.7 % (40.0-70.0) 11/09/18 06:36 Seg Neutrophils # 3.1 K/mm3 (1.8-7.7) 11/09/18 06:36 Sodium 140 mmol/L (137-145) 11/14/18 05:15 Potassium 3.7 mmol/L (3.6-5.0) 11/14/18 05:15 Chloride 104.3 mmol/L (98-107) 11/14/18 05:15 Carbon Dioxide 19 mmol/L (22-30) L 11/14/18 05:15 20 mmol/L 11/14/18 05:15 BUN 18 mg/dL (7-17) H 11/14/18 05:15 2.6 mg/dL (0.7-1.2) H 11/14/18 05:15 Estimated GFR 18 ml/min 11/14/18 05:15 7 % 11/14/18 05:15 Glucose 101 mg/dL (65-100) H 11/14/18 05:15 POC Glucose 118 (70-105) H 11/08/18 19:04 5.6 % (4-6) 11/08/18 21:35 Calcium 9.4 mg/dL (8.4-10.2) 11/14/18 05:15 Magnesium 1.80 mg/dL (1.7-2.3) 11/10/18 05:26 < 0.20 mg/dL (0.1-1.2) 11/09/18 06:36 AST 13 units/L (5-40) 11/09/18 06:36 ALT 8 units/L (7-56) 11/09/18 06:36 53 units/L (35-129) 11/09/18 06:36 0.012 ng/mL (0.00-0.029) 11/08/18 16:54 5.6 g/dL (6.3-8.2) L 11/09/18 06:36 2.9 g/dL (3.9-5) L 11/09/18 06:36 1.1 % 11/09/18 06:36 Yellow (Yellow) 11/08/18 12:38 Cloudy (Clear) 11/08/18 12:38 5.0 (5.0-7.0) 11/08/18 12:38 Ur Specific Holden 1.021 (1.003-1.030) 11/08/18 12:38 30 mg/dl mg/dL (Negative) 11/08/18 12:38 Neg mg/dL (Negative) 11/08/18 12:38 Neg mg/dL (Negative) 11/08/18 12:38 Lg (Negative) 11/08/18 12:38 Neg (Negative) 11/08/18 12:38 Neg (Negative) 11/08/18 12:38 < 2.0 mg/dL (<2.0) 11/08/18 12:38 Ur Leukocyte Esterase Tr (Negative) 11/08/18 12:38 2.0 /HPF (0.0-6.0) 11/08/18 12:38 5.0 /HPF (0.0-6.0) 11/08/18 12:38 U Epithel Cells (Auto) 15.0 /HPF (0-13.0) H 11/08/18 12:38 1+ /HPF (Negative) 11/08/18 12:38 3+ /HPF 11/08/18 12:38 Active Medications - Current Medications Current Medications: Generic Name Dose Route Start Last Admin Trade Name Freq PRN Reason Stop Dose Admin Acetaminophen 650 mg 11/08/18 21:25 Tylenol PO Q4H PRN Pain MILD(1-3)/Fever >100.5/GLASS Amlodipine Besylate 10 mg 11/09/18 18:00 11/13/18 18:31 Norvasc PO Not Given QPM [facility] Ascorbic Acid 500 mg 11/09/18 10:00 11/14/18 10:29 Vitamin C PO 500 mg DAILY [facility] Administration Cholecalciferol 400 unit 11/09/18 10:00 11/14/18 10:29 Vitamin D3 PO 400 unit DAILY [facility] Administration Memantine 10 mg 11/08/18 22:00 11/14/18 10:28 Namenda PO 10 mg Q12HR [facility]MER Administration Morphine Sulfate 2 mg 11/08/18 21:25 Morphine IV Q4H PRN Pain, Moderate (4-6) Ondansetron HCl 4 mg 11/08/18 21:25 Zofran IV Q8H PRN Nausea And Vomiting Oxycodone/Acetaminophen 1 tab 11/08/18 21:25 11/13/18 22:25 Percocet 5/325 PO 1 tab Q6H PRN Administration Pain, Moderate (4-6) Sodium Chloride 10 ml 11/08/18 22:00 11/14/18 10:29 Sodium Chloride Flush Syringe 10 Ml IV 10 ml BID SUMMER Administration Sodium Chloride 10 ml 11/08/18 21:25 Sodium Chloride Flush Syringe 10 Ml IV PRN PRN LINE FLUSH Verapamil HCl 240 mg 11/09/18 10:00 11/14/18 10:28 Calan Sr PO 240 mg DAILY [facility] Administration Vitamin E 400 unit 11/09/18 10:00 11/14/18 10:29 Vitamin E Cap PO 400 unit DAILY [facility] Administration
[2018-11-14] MEDS: NORVASC PO SCH (18:53)
[2018-11-15 06:25] LABS: Calcium 8.6 mg/dL (8.4-10.2)
--- NOTE | 2018-11-15 08:47 | Progress Note ---
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 Suspect NSAID induced nephropathy superimposed. Kidney function appears to be stabilizing. Ultrasound shows increased echogenicity. Avoid NSAIDs and other potential nephrotoxins. Discussed avoiding NSAIDs in detail with the son a few days ago. Okay to discharge home from renal standpoint. We'll follow up kidney function as an outpatient (2) Hyperkalemia Status: Acute Plan to address problem: Potassium improved to normal (3) Metabolic acidosis Status: Acute Plan to address problem: Acidosis related to uremia. Bicarbonate has improved. Follow bicarbonate (4) Chest pain Status: Acute Plan to address problem: Management by on call pharmacy technician. (5) Dementia Status: Acute Plan to address problem: Management by primary attending Subjective Date of service: 11/15/18 Principal diagnosis: kidney injury Interval history: Patient seen lying in bed this morning. No family at bedside. No complaints. No nausea or vomiting. No pain Objective - Exam Narrative Exam: Elderly female lying in bed in no acute distress HEENT: NCAT, pink oral mucous membrane Neck: Supple, no venous distention CVS: S1S2 RRR with no murmur, rub or gallop Chest: Clear to auscultation Abdomen: Protuberant, soft, nontender, bowel sounds are present Extremities: No edema Neuro: Awake, alert no focal deficits - Vital Signs Vital signs: Vital Signs - 12hr 11/14/18 11/15/18 11/15/18 22:00 02:00 02:01 Temperature 98.6 F Pulse Rate 87 Pulse Rate [ 84 Radial] Respiratory 20 20 Rate Blood Pressure 140/64 O2 Sat by Pulse 93 93 Oximetry 11/15/18 07:44 Temperature 98.7 F Pulse Rate 94 H Pulse Rate [ Radial] Respiratory 16 Rate Blood Pressure 137/63 O2 Sat by Pulse 82 L Oximetry - Lab 11/09/18 06:36 11/15/18 05:13 Most recent lab results Calcium 8.6 mg/dL (8.4-10.2) 11/15/18 05:13 Magnesium 1.80 mg/dL (1.7-2.3) 11/10/18 05:26 Medications & Allergies - Medications Allergies/Adverse Reactions: Allergies No Known Allergies Allergy (Verified 11/08/18 11:32) Home Medications: Home Medications Medication Instructions Recorded Confirmed Last Taken Type amLODIPine [Norvasc] 10 mg PO QPM 12/06/13 11/08/18 Unknown History Lansoprazole [Prevacid] 30 mg PO DAILY 07/24/15 11/08/18 Unknown History Vitamin E 400 unit PO DAILY 07/24/15 11/08/18 Unknown History Alendronate Sodium [Fosamax] 70 mg PO QWEEK 11/08/18 11/08/18 Unknown History Ascorbic Acid [Vitamin C with Violeta 500 mg PO DAILY 11/08/18 11/08/18 Unknown History Hips] Cholecalciferol Vit D3 [Vitamin D3 400 unit PO DAILY 11/08/18 11/08/18 Unknown History 400 UNIT TAB] Glucosamine Sulfate [Cidatrine] 1,000 mg PO DAILY 11/08/18 11/08/18 Unknown History Memantine HCl [Namenda Xr] 28 mg PO DAILY 11/08/18 11/08/18 Unknown History Multivit-Min/Iron/Folic/Lutein 1 each PO DAILY 11/08/18 11/08/18 Unknown History [Centrum Silver Women Tablet] Verapamil ER [Calan SR] 240 mg PO DAILY 11/08/18 11/08/18 Unknown History Ipratropium/Albuterol Sulfate 1 ampul IH Q8H #90 ampul.neb 11/15/18 Unknown Rx [DUONEB *Not for PRN Use*] traMADol [Ultram] 50 mg PO Q6HR PRN #14 tablet 11/15/18 Unknown Rx Active Medications: Generic Name Dose Route Start Last Admin Trade Name Seferino PRN Reason Stop Dose Admin Acetaminophen 650 mg 11/08/18 21:25 Tylenol PO Q4H PRN Pain MILD(1-3)/Fever >100.5/GLASS Amlodipine Besylate 10 mg 11/09/18 18:00 11/14/18 18:53 Norvasc PO Not Given QPM [facility] Ascorbic Acid 500 mg 11/09/18 10:00 11/14/18 10:29 Vitamin C PO 500 mg DAILY [facility] Administration Cholecalciferol 400 unit 11/09/18 10:00 11/14/18 10:29 Vitamin D3 PO 400 unit DAILY [facility] Administration Memantine 10 mg 11/08/18 22:00 11/14/18 22:09 Namenda PO 10 mg Q12HR [facility] Administration Morphine Sulfate 2 mg 11/08/18 21:25 Morphine IV Q4H PRN Pain, Moderate (4-6) Ondansetron HCl 4 mg 11/08/18 21:25 Zofran IV Q8H PRN Nausea And Vomiting Oxycodone/Acetaminophen 1 tab 11/08/18 21:25 11/13/18 22:25 Percocet 5/325 PO 1 tab Q6H PRN Administration Pain, Moderate (4-6) Sodium Chloride 10 ml 11/08/18 22:00 11/14/18 22:10 Sodium Chloride Flush Syringe 10 Ml IV 10 ml BID [facility]MER Administration Sodium Chloride 10 ml 11/08/18 21:25 Sodium Chloride Flush Syringe 10 Ml IV PRN PRN LINE FLUSH Verapamil HCl 240 mg 11/09/18 10:00 11/14/18 10:28 Calan Sr PO 240 mg DAILY [facility] Administration Vitamin E 400 unit 11/09/18 10:00 11/14/18 10:29 Vitamin E Cap PO 400 unit DAILY [facility] Administration
[2018-11-15] MEDS: NAMENDA PO SCH (09:30)
[2018-11-15] MEDS: VITAMIN D3 PO SCH (09:30)
[2018-11-15] MEDS: VITAMIN E CAP PO SCH (09:31)
[2018-11-15] MEDS: VITAMIN C PO SCH (09:31)
[2018-11-15] MEDS: CALAN SR PO SCH (09:31)
[2018-11-15] MEDS: SODIUM CHLORIDE FLUSH SYRINGE 10 ML IV SCH (09:32)
[2018-11-15 09:33] VITALS: BP 137/59
--- NOTE | 2018-11-15 09:44 | Discharge Summary ---
Providers - Providers Date of Admission: 11/08/18 16:54 Attending physician: SANDRITA WHITEHEAD MD 11/08/18 21:31 Consult to Physician [CONS] Routine Comment: Consulting Provider: SANAM ERAZO Physician Instructions: Reason For Exam: julián Primary care [facility] Hospitalization Reason for admission: shortness of breath Condition: Stable Hospital course: Patient is a 83 yo woman with a history of Dementia, CKD 3 with baseline Cr of 1.1, OA on NSAIDS, hypertension and Breast cancer who presented to [facility] ED with chest pains and sob. She was unable to do stress test due to Dementia. * pCXR showed COPD and no acute findings Chest pains, atypical, most likely costochrondritis, stress test negative Hypoxic Respiratory failure: Home o2 prior to discharge. XRAY SHOWS COPD. Patient likely has underlying nocturnal hypoxia and recommended outpt pulmonary evaluation. Home O2 evaluation was also discussed with the son. Case management documentation or report is as noted below. ARF/CKD 3, tubular necrosis and vasomotor nephropathy: treated with IVF, monitor bmp closely, consulted Nephrology and noted patient has a hx of CKD likely due to Hypertensive sclerosis and with now super imposed NSAID induced nephropathy. Recommendations is to avoid NSAIDS. this has been discussed with family. Renal ultrsound showed chronic changes. 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 Medical history includes Alzheimer's dementia, HTN. Patient is alert to person. Son states patient has remained independent with ambulation at home and does not use DME. PCP is Dr. Echols ([phone]) He does have a cane and walker in the home. Primary caregiver and contact is son, Julius Hale ([phone]) Son at bedside during visit. Patient has Medicare and for Life supplement. Son states he and his brother have made arrangements for private caregivers to be in the home via a private agency. Caregivers to start service on Wednesday, 11/14 CM will follow for any additional home health needs. Disposition: [id number] HOME [facility] Time spent for discharge: 35 mins Core Measure Documentation - Palliative Care Palliative Care/ Comfort Measures: Not Applicable - Core Measures Any of the following diagnoses?: none - VTE Discharge Requirements Deep Vein Thrombosis/Pulmonary Embolism Present on Admission: No Exam - Physical Exam Narrative exam: - Physical exam Gen: thin frail, nad, awake and alert and oriented 2 HEENT: NCAT, EOMI, PERRL, OP Clear Neck: supple, no adenopathy, no thyromegaly, no JVD CVS/Heart: RRR, normal S1S2, pulses present bilaterally Chest/Lungs: CTA B, Symmetrical chest expansion, good air entry bilaterally GI/Abdomen: soft, NTND, good bowel sounds, no guarding or rebound /Bladder: no suprapubic tenderness, no CVA or paraspinal tenderness Extermity/Skin: no c/c/e, no obvious rash MSK: sROM x 4 Neuro: no focal deficits Psych: Normal mood and affect - Constitutional Vitals: Temp Pulse Resp BP Pulse Ox 98.7 F 87 16 137/59 82 L 11/15/18 07:44 11/15/18 09:31 11/15/18 07:44 11/15/18 09:31 11/15/18 07:44 Plan Activity: advance as tolerated, fall precautions Diet: low fat, renal Special Instructions: record daily BP diary Follow up with: [facility] MD BRIAN [Primary Care Provider] - 7 Days SANAM ERAZO MD [Staff Physician] - 7 Days KYM SAENZ MD [Staff Physician] - 7 Days Prescriptions: Ipratropium/Albuterol Sulfate [DUONEB *Not for PRN Use*] 1 ampul IH Q8H #90 ampul.neb traMADol [Ultram] 50 mg PO Q6HR PRN #14 tablet PRN Reason: Pain Other Discharge Orders: Nebulizer (Amb) Location: None Selected
== END 2018-11-15 14:20 | disposition home health service (06) | DRG 682 ==
LOC: ED 11:26 → 4A 16:54 → 2B-ACE 11-11 15:18
PROVIDERS: ADMIT Internal Medicine; ATTEND Internal Medicine
DX: N17.0 Acute kidney failure with tubular necrosis (principal); G93.41 Metabolic encephalopathy; J96.91 Respiratory failure, unspecified with hypoxia; E44.0 Moderate protein-calorie malnutrition; E87.2 Acidosis; E87.5 Hyperkalemia; M94.0 Chondrocostal junction syndrome [Tietze]; M19.90 Unspecified osteoarthritis, unspecified site; Z82.49 Family history of ischemic heart disease and other diseases of the circulatory system; G30.9 Alzheimer's disease, unspecified; F02.80 Dementia in other diseases classified elsewhere, unspecified severity, without behavioral disturbance, psychotic disturbance, mood disturbance, and anxiety; Z90.710 Acquired absence of both cervix and uterus; Z85.3 Personal history of malignant neoplasm of breast; N18.3 Chronic kidney disease, stage 3 (moderate); I12.9 Hypertensive chronic kidney disease with stage 1 through stage 4 chronic kidney disease, or unspecified chronic kidney disease; J44.9 Chronic obstructive pulmonary disease, unspecified; Z80.3 Family history of malignant neoplasm of breast; Z80.1 Family history of malignant neoplasm of trachea, bronchus and lung; Z80.41 Family history of malignant neoplasm of ovary; Z68.24 Body mass index [BMI] 24.0-24.9, adult
CPT/HCPCS: 36415; 71046; 76770; 78452; 80048; 80053; 81001; 82962; 83036; 83735; 84484; 85025; 93005; 93010; 93017; G0378; A9502; J2060; J2785; J7030; J7042

== ENCOUNTER 2019-08-04 14:11 | Emergency (ER) | payer MEDICARE, OTHER ==
--- NOTE | 2019-08-04 16:41 | Event Note ---
ED Screening Note Date of service: 08/04/19 Time: 16:39 ED Screening Note: 84 y/o female with dementia comes in for concern for bowel issues. This initial assessment/diagnostic orders/clinical plan/treatment(s) is/are subject to change based on patients health status, clinical progression and re- assessment by fellow clinical providers in the ED. Further treatment and workup at subsequent clinical providers discretion. Patient/guardian urged not to elope from the ED as their condition may be serious if not clinically assessed and managed. Initial orders include:
--- NOTE | 2019-08-04 19:22 | Emergency Department Report ---
ED Abdominal Pain HPI - General Chief Complaint: Abdominal Pain Stated Complaint: BOWEL ISSUE Time Seen by Provider: 08/04/19 16:38 Source: patient, family Mode of arrival: Wheelchair Limitations: No Limitations - History of Present Illness Initial Comments: Patient is an 84-year-old female that presents emergency room with mild abdominal pain and difficulty having a bowel movement. Patient has had constipation for a month. Patient is not able to move her bowels. Patient's primary care sent her in for an evaluation. Patient has advanced Alzheimer's. History per son. Son is at bedside. MD Complaint: abdominal pain -: Sudden, month(s) Location: diffuse Radiation: none Migration to: no migration Severity: mild Quality: aching Consistency: constant Improves With: bowel movement, rest Worsens With: movement Associated Symptoms: constipation, other. denies: nausea, vomiting, diarrhea, fever, chills, dysuria, hematemesis, hematochezia, melena, hematuria, anorexia - Related Data Home Medications Medication Instructions Recorded Confirmed Last Taken amLODIPine 10 mg PO QPM 12/06/13 11/08/18 Unknown Lansoprazole [Prevacid] 30 mg PO DAILY 07/24/15 11/08/18 Unknown Vitamin E 400 unit PO DAILY 07/24/15 11/08/18 Unknown Alendronate Sodium [Fosamax] 70 mg PO QWEEK 11/08/18 11/08/18 Unknown Ascorbic Acid [Vitamin C with Violeta 500 mg PO DAILY 11/08/18 11/08/18 Unknown Hips] Cholecalciferol Vit D3 [Vitamin D3 400 unit PO DAILY 11/08/18 11/08/18 Unknown 400 UNIT TAB] Glucosamine Sulfate [Cidatrine] 1,000 mg PO DAILY 11/08/18 11/08/18 Unknown Memantine HCl [Namenda Xr] 28 mg PO DAILY 11/08/18 11/08/18 Unknown Multivit-Min/Iron/Folic/Lutein 1 each PO DAILY 11/08/18 11/08/18 Unknown [Centrum Silver Women Tablet] Verapamil ER [Calan SR] 240 mg PO DAILY 11/08/18 11/08/18 Unknown Previous Rx's Medication Instructions Recorded Last Taken Type Ipratropium/Albuterol Sulfate 1 ampul IH Q8H #90 ampul.neb 11/15/18 Unknown Rx [DUONEB *Not for PRN Use*] traMADoL [Ultram] 50 mg PO Q6HR PRN #14 tablet 11/15/18 Unknown Rx Sennosides/Docusate Sodium [Senna 1 each PO BID 15 Days #30 capsule 08/04/19 Unknown Rx Plus 8.6-50 mg Softgel] Allergies Allergy/AdvReac Type Severity Reaction Status Date / Time No Known Allergies Allergy Verified 11/08/18 11:32 ED Review of Systems ROS: Stated complaint: BOWEL ISSUE Other details as noted in HPI Comment: All other systems reviewed and negative Constitutional: see HPI. denies: chills, fever Endocrine: no symptoms reported Gastrointestinal: abdominal pain, constipation. denies: nausea, vomiting, diarrhea, hematemesis, melena, hematochezia Neurological: denies: headache, weakness, paresthesias Psychiatric: denies: anxiety, depression Hematological/Lymphatic: denies: easy bleeding, easy bruising ED Past Medical Hx - Past Medical History Previous Medical History?: Yes Hx Hypertension: Yes Hx Heart Attack/AMI: No Hx Congestive Heart Failure: No Hx Deep Vein Thrombosis: No Hx Renal Disease: Yes Hx of Cancer: Yes (breast 2005) Hx Arthritis: Yes Hx Seizures: No Hx Tuberculosis: No Hx Dementia: Yes Hx HIV: No Additional medical history: stage 4 renal disease. - Surgical History Past Surgical History?: Yes Hx Coronary Stent: No Hx Pacemaker: No Hx Internal Defibrillator: No Hx Breast Surgery: Yes Additional Surgical History: Breast surgery (breast CA), hysterectomy - Family History Family history: no significant - Social History Smoking Status: Never Smoker Substance Use Type: None - Medications Home Medications: Home Medications Medication Instructions Recorded Confirmed Last Taken Type amLODIPine 10 mg PO QPM 12/06/13 11/08/18 Unknown History Lansoprazole [Prevacid] 30 mg PO DAILY 07/24/15 11/08/18 Unknown History Vitamin E 400 unit PO DAILY 07/24/15 11/08/18 Unknown History Alendronate Sodium [Fosamax] 70 mg PO QWEEK 11/08/18 11/08/18 Unknown History Ascorbic Acid [Vitamin C with Violeta 500 mg PO DAILY 11/08/18 11/08/18 Unknown History Hips] Cholecalciferol Vit D3 [Vitamin D3 400 unit PO DAILY 11/08/18 11/08/18 Unknown History 400 UNIT TAB] Glucosamine Sulfate [Cidatrine] 1,000 mg PO DAILY 11/08/18 11/08/18 Unknown Hist ory Memantine HCl [Namenda Xr] 28 mg PO DAILY 11/08/18 11/08/18 Unknown History Multivit-Min/Iron/Folic/Lutein 1 each PO DAILY 11/08/18 11/08/18 Unknown History [Centrum Silver Women Tablet] Verapamil ER [Calan SR] 240 mg PO DAILY 11/08/18 11/08/18 Unknown History Ipratropium/Albuterol Sulfate 1 ampul IH Q8H #90 ampul.neb 11/15/18 Unknown Rx [DUONEB *Not for PRN Use*] traMADoL [Ultram] 50 mg PO Q6HR PRN #14 tablet 11/15/18 Unknown Rx Sennosides/Docusate Sodium [Senna 1 each PO BID 15 Days #30 capsule 08/04/19 Unknown Rx Plus 8.6-50 mg Softgel] ED Physical Exam - General Limitations: No Limitations General appearance: alert, in no apparent distress - Head Head exam: Present: atraumatic, normocephalic - Eye Eye exam: Present: normal appearance - ENT ENT exam: Present: mucous membranes moist - Neck Neck exam: Present: normal inspection - Respiratory Respiratory exam: Present: normal lung sounds bilaterally. Absent: respiratory distress, wheezes, rales - Cardiovascular Cardiovascular Exam: Present: regular rate, normal rhythm. Absent: systolic murmur, diastolic murmur, rubs, gallop - GI/Abdominal GI/Abdominal exam: Present: soft, normal bowel sounds. Absent: distended, tenderness, guarding - Extremities Exam Extremities exam: Present: normal inspection - Back Exam Back exam: Present: normal inspection - Neurological Exam Neurological exam: Present: alert, altered - Psychiatric Psychiatric exam: Present: normal affect, normal mood - Skin Skin exam: Present: warm, dry, intact, normal color. Absent: rash ED Course Vital Signs 08/04/19 08/04/19 08/04/19 16:04 19:36 19:37 Temperature 98.8 F 98.5 F Pulse Rate 59 L 62 Respiratory 20 18 Rate Blood Pressure 143/53 Blood Pressure 179/63 [right arm] O2 Sat by Pulse 95 90 Oximetry - Reevaluation(s) Reevaluation #1: I discussed all results with family. I discussed plan of care of family. Family voiced understanding of plan of care. Patient and family given discharge instructions. Family voiced understanding of discharge instructions. Patient discharged home. Patient stable for discharge. 08/04/19 21:48 ED Medical Decision Making - Lab Data Result diagrams: 08/04/19 19:23 08/04/19 19:23 - Radiology Data Radiology results: report reviewed CT ABDOMEN AND PELVIS WITHOUT CONTRAST INDICATION / CLINICAL INFORMATION: Abdominal Pain. TECHNIQUE: Axial CT images were obtained through the abdomen and pelvis without IV contrast. All CT scans at this location are performed using CT dose reduction for ALARA by means of automated exposure control. COMPARISON: None available. FINDINGS: LOWER CHEST: Mild bibasilar atelectatic changes. No pleural fluid seen. LIVER: Unremarkable by noncontrast CT examination. GALLBLADDER: No significant abnormality. BILE DUCTS: No significant abnormality. PANCREAS: No significant abnormality. SPLEEN: No significant abnormality. ADRENALS: No significant abnormality. RIGHT KIDNEY and URETER: No significant abnormality. LEFT KIDNEY and URETER: No significant abnormality. STOMACH and SMALL BOWEL: Moderately sized hiatal hernia. COLON: Large volume of fecal material throughout the colon. No evidence of obstructive or inflammatory change. APPENDIX: Not definitely identified. No evidence of acute inflammatory process in the right lower quadrant. PERITONEUM: No free fluid. No free air. No fluid collection. LYMPH NODES: No adenopathy. AORTA and ARTERIES: No significant abnormality. IVC and VEINS: No significant abnormality. URINARY BLADDER: No significant abnormality. REPRODUCTIVE ORGANS: Uterus is absent. No significant adnexal abnormality. ADDITIONAL FINDINGS: None. SKELETAL SYSTEM: Diffuse osseous demineralization. No acute abnormality. Wides pread muscle atrophy and varying degrees. Advanced degenerative disc disease and facet arthrosis with mild scoliotic curvature in the lumbar and lower thoracic spine. 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 IMPRESSION: 1. No acute abnormality. Incidental findings as above. - Medical Decision Making Condition is an 84 year-old mellitus emergency room with lower abdominal pain and constipation. Patient was sent here to rule out obstruction. Patient's CT was done and shows no acute findings. Patient's labs unremarkable except for findings consistent with chronic kidney disease. Patient is stable for discharge. Patient discharged home. Patient discharged to the care of her family - Differential Diagnosis constipation, obstruction, abdominal pain, Critical care attestation.: If time is entered above; I have spent that time in minutes in the direct care of this critically ill patient, excluding procedure time. ED Disposition Clinical Impression: Abdominal pain Qualifiers: Abdominal location: generalized Qualified Code(s): R10.84 - Generalized abdominal pain Constipation Qualifiers: Constipation type: other constipation type Qualified Code(s): K59.09 - Other constipation CKD (chronic kidney disease) Qualifiers: Chronic kidney disease stage: unspecified stage Qualified Code(s): N18.9 - Chronic kidney disease, unspecified Disposition: TO HOME OR SELFCARE Is pt being admited?: No Does the pt Need Aspirin: No Condition: Stable Instructions: Abdominal Pain (ED), Constipation (ED), High Fiber Diet (ED), Obstipation (ED) Additional Instructions: Patient to follow up with primary care in 2-3 days. Patient to take meds as directed. Patient to follow up with [facility] in 2-3 days. Patient to return to your condition worsens, change or new symptoms arise. Patient to increase water. Patient eat a high-fiber diet. Patient to increase water Prescriptions: Sennosides/Docusate Sodium [Senna Plus 8.6-50 mg Softgel] 1 each PO BID 15 Days #30 capsule Referrals: DAYNA CURTIS MD [Primary Care Provider] - 2-3 Days BRODY CHI MD [Staff Physician] - 2-3 Days Time of Disposition: 21:50
[2019-08-04 19:33] LABS: Basophils # (Auto) 0.1 K/mm3 (0.0-0.1); Basophils % (Auto) 1.5 % (0.0-1.8); Eosinophils # (Auto) 0.1 K/mm3 (0.0-0.4); Eosinophils % (Auto) 2.1 % (0.0-4.3); Hematocrit 34.3 % (30.3-42.9); Hemoglobin 11.5 gm/dl (10.1-14.3); Lymphocytes # (Auto) 1.4 K/mm3 (1.2-5.4); Lymphocytes % (Auto) 23.5 % (13.4-35.0); Mean Corpuscular HGB Conc 33 % (30-34); Mean Corpuscular Volume 88 fl (79-97); Monocytes # (Auto) 0.5 K/mm3 (0.0-0.8); Monocytes % (Auto) 8.7 % (0.0-7.3); Platelet Count 278 K/mm3 (140-440); Red Blood Count 3.91 M/mm3 (3.65-5.03); Red Cell Distribution Width 14.1 % (13.2-15.2)
[2019-08-04 19:56] LABS: Alanine Aminotransferase 8 units/L (7-56); Albumin 3.9 g/dL (3.9-5); BUN/Creatinine Ratio 14; Blood Urea Nitrogen 28 mg/dL (7-17); Calcium 10.1 mg/dL (8.4-10.2); Hemolysis Index 3
[2019-08-04 19:57] LABS: Bilirubin,Direct < 0.2 mg/dL (0-0.2)
--- NOTE | 2019-08-04 20:46 | Cat Scan Report ---
CT ABDOMEN AND PELVIS WITHOUT CONTRAST INDICATION / CLINICAL INFORMATION: Abdominal Pain. TECHNIQUE: Axial CT images were obtained through the abdomen and pelvis without IV contrast. All CT scans at [facility] location are performed using CT dose reduction for ALARA by means of automated exposure control. COMPARISON: None available. FINDINGS: LOWER CHEST: Mild bibasilar atelectatic changes. No pleural fluid seen. LIVER: Unremarkable by noncontrast CT examination. GALLBLADDER: No significant abnormality. BILE DUCTS: No significant abnormality. PANCREAS: No significant abnormality. SPLEEN: No significant abnormality. ADRENALS: No significant abnormality. RIGHT KIDNEY and URETER: No significant abnormality. LEFT KIDNEY and URETER: No significant abnormality. STOMACH and SMALL BOWEL: Moderately sized hiatal hernia. COLON: Large volume of fecal material throughout the colon. No evidence of obstructive or inflammator y change. APPENDIX: Not definitely identified. No evidence of acute inflammatory process in the right lower amy drant. PERITONEUM: No free fluid. No free air. No fluid collection. LYMPH NODES: No adenopathy. AORTA and ARTERIES: No significant abnormality. IVC and VEINS: No significant abnormality. URINARY BLADDER: No significant abnormality. REPRODUCTIVE ORGANS: Uterus is absent. No significant adnexal abnormality. ADDITIONAL FINDINGS: None. SKELETAL SYSTEM: Diffuse osseous demineralization. No acute abnormality. Widespread muscle atrophy an d varying degrees. Advanced degenerative disc disease and facet arthrosis with mild scoliotic curvatu re in the lumbar and lower thoracic spine. 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 IMPRESSION: 1. No acute abnormality. Incidental findings as above. Signer Name: Vince Olmos MD Signed: 08/04/2019 8:41 PM Workstation Name: [id number]
[2019-08-04 22:43] VITALS: BP 152/63
== END 2019-08-04 22:13 | disposition home or self-care (01) ==
LOC: ED 14:11
DX: I12.9 Hypertensive chronic kidney disease with stage 1 through stage 4 chronic kidney disease, or unspecified chronic kidney disease (principal); N18.4 Chronic kidney disease, stage 4 (severe); R10.9 Unspecified abdominal pain; K59.00 Constipation, unspecified; M19.90 Unspecified osteoarthritis, unspecified site; Z79.899 Other long term (current) drug therapy; Z98.890 Other specified postprocedural states; Z90.710 Acquired absence of both cervix and uterus
CPT/HCPCS: 36415; 74176; 80048; 80076; 85025

== ENCOUNTER 2020-04-10 12:51 | Inpatient (IN) | payer MEDICARE, OTHER ==
[2020-04-10] MEDS ORDERED: SODIUM CHLORIDE 0.9% 500 ML 500 ML IV ONE (13:56)
--- NOTE | 2020-04-10 14:02 | Emergency Department Report ---
ED General Adult HPI - General Stated complaint: BREAST PAIN Time Seen by Provider: 04/10/20 13:50 Source: family - History of Present Illness Initial comments: Patient is 85-year-old female with history of advanced dementia and h ypertension. Patient brought to the emergency room from home accompanied by her son who is the caregiver. He stated that he noticed this afternoon that she is grabbing her right side, lower chest and right upper abdomen. He denied any cough recently. Patient is unable to provide any history. Son stated that she was doing well until next 2 to 3 days ago. Patient was found to have an oxygen saturation of 81% on room air improved to 95% on 2 L of oxygen. -: This afternoon Location: chest, abdomen - Related Data Home Medications Medication Instructions Recorded Confirmed Last Taken Lansoprazole [Prevacid] 30 mg PO DAILY 07/24/15 04/10/20 Unknown Vitamin E 400 unit PO DAILY 07/24/15 04/10/20 Unknown Ascorbic Acid [Vitamin C with Violeta 500 mg PO DAILY 11/08/18 04/10/20 Unknown Hips] Cholecalciferol Vit D3 [Vitamin D3 400 unit PO DAILY 11/08/18 04/10/20 Unknown 400 UNIT TAB] Memantine HCl [Namenda Xr] 28 mg PO DAILY 11/08/18 04/10/20 Unknown Multivit-Min/Iron/Folic/Lutein 1 each PO DAILY 11/08/18 04/10/20 Unknown [Centrum Silver Women Tablet] Verapamil ER [Calan SR] 240 mg PO DAILY 11/08/18 04/10/20 Unknown Loratadine [Claritin] 10 mg PO DAILY 04/10/20 04/10/20 Unknown Olmesartan (Nf) [Benicar] 40 mg PO QDAY 04/10/20 04/10/20 Unknown Previous Rx's Medication Instructions Recorded Last Taken Type Azithromycin [Zithromax TAB] 250 mg PO QDAY #4 tablet 04/12/20 Unknown Rx cephALEXin [Keflex] 500 mg PO Q8HR #15 cap 04/12/20 Unknown Rx Allergies Allergy/AdvReac Type Severity Reaction Status Date / Time No Known Allergies Allergy Verified 11/08/18 11:32 ED Review of Systems ROS: Stated complaint: BREAST PAIN Other details as noted in HPI Comment: All other systems reviewed and negative Constitutional: denies: chills, fever Respiratory: denies: cough, shortness of breath, SOB with exertion, SOB at rest Cardiovascular: chest pain. denies: palpitations Gastrointestinal: abdominal pain. denies: nausea, vomiting Musculoskeletal: denies: back pain Neurological: weakness ED Past Medical Hx - Past Medical History Hx Hypertension: Yes Hx Heart Attack/AMI: No Hx Congestive Heart Failure: No Hx Deep Vein Thrombosis: No Hx Renal Disease: Yes Hx Arthritis: Yes Hx Seizures: No Hx Tuberculosis: No Hx Dementia: Yes Hx HIV: No Additional medical history: stage 4 renal disease. - Surgical History Hx Coronary Stent: No Hx Pacemaker: No Hx Internal Defibrillator: No Hx Breast Surgery: Yes Additional Surgical History: Breast surgery (breast CA), hysterectomy - Social History Smoking Status: Never Smoker Substance Use Type: None - Medications Home Medications: Home Medications Medication Instructions Recorded Confirmed Last Taken Type Lansoprazole [Prevacid] 30 mg PO DAILY 07/24/15 04/10/20 Unknown History Vitamin E 400 unit PO DAILY 07/24/15 04/10/20 Unknown History Ascorbic Acid [Vitamin C with Violeta 500 mg PO DAILY 11/08/18 04/10/20 Unknown History Hips] Cholecalciferol Vit D3 [Vitamin D3 400 unit PO DAILY 11/08/18 04/10/20 Unknown History 400 UNIT TAB] Memantine HCl [Namenda Xr] 28 mg PO DAILY 11/08/18 04/10/20 Unknown History Multivit-Min/Iron/Folic/Lutein 1 each PO DAILY 11/08/18 04/10/20 Unknown History [Centrum Silver Women Tablet] Verapamil ER [Calan SR] 240 mg PO DAILY 11/08/18 04/10/20 Unknown History Loratadine [Claritin] 10 mg PO DAILY 04/10/20 04/10/20 Unknown History Olmesartan (Nf) [Benicar] 40 mg PO QDAY 04/10/20 04/10/20 Unknown History Azithromycin [Zithromax TAB] 250 mg PO QDAY #4 tablet 04/12/20 Unknown Rx cephALEXin [Keflex] 500 mg PO Q8HR #15 cap 04/12/20 Unknown Rx ED Physical Exam - General General appearance: alert, in no apparent distress - Head Head exam: Present: atraumatic, normocephalic, normal inspection - Eye Eye exam: Present: normal appearance - ENT ENT exam: Present: normal exam - Neck Neck exam: Present: normal inspection, full ROM. Absent: tenderness, meningismus, lymphadenopathy, thyromegaly - Respiratory Respiratory exam: Present: rales. Absent: respiratory distress, wheezes, rhonchi, stridor, decreased breath sounds - Cardiovascular Cardiovascular Exam: Present: regular rate, normal rhythm, normal heart sounds - GI/Abdominal GI/Abdominal exam: Present: soft, normal bowel sounds. Absent: distended, tenderness, guarding, rebound, rigid, organomegaly, mass, bruit, pulsatile mass, hernia - Extremities Exam Extremities exam: Present: normal inspection, full ROM, normal capillary refill - Back Exam Back exam: Present: normal inspection, full ROM. Absent: CVA tenderness (R), CVA tenderness (L) - Neurological Exam Neurological exam: Present: alert, altered - Psychiatric Psychiatric exam: Present: normal mood - Skin Skin exam: Present: warm, intact, normal color ED Course Vital Signs 04/10/20 04/10/20 04/10/20 13:51 14:00 14:02 Temperature Pulse Rate 59 L 67 Respiratory 19 26 H 20 Rate Blood Pressure 124/49 115/44 O2 Sat by Pulse 91 90 88 Oximetry 04/10/20 04/10/20 04/10/20 14:15 14:31 14:45 Temperature Pulse Rate 66 67 71 Respiratory 17 32 H 15 Rate Blood Pressure 115/44 115/44 115/44 O2 Sat by Pulse 93 100 83 L Oximetry 04/10/20 04/10/20 04/10/20 15:00 15:15 15:31 Temperature Pulse Rate 67 61 59 L Respiratory 30 H 22 22 Rate Blood Pressure 114/47 114/47 114/47 O2 Sat by Pulse 78 L 94 95 Oximetry 04/10/20 04/10/20 04/10/20 15:45 16:00 17:01 Temperature Pulse Rate 64 68 80 Respiratory 21 15 19 Rate Blood Pressure 114/47 109/52 126/63 O2 Sat by Pulse 94 93 97 Oximetry 04/10/20 04/10/20 04/10/20 18:01 18:21 18:31 Temperature Pulse Rate 88 72 70 Respiratory 22 22 17 Rate Blood Pressure 153/69 153/69 153/69 O2 Sat by Pulse 83 L 98 98 Oximetry 04/10/20 04/10/20 04/10/20 18:41 18:51 18:56 Temperature 98.0 F Pulse Rate 67 69 Respiratory 19 20 Rate Blood Pressure 153/69 153/69 O2 Sat by Pulse 99 100 Oximetry 04/10/20 04/10/20 04/10/20 19:00 19:11 19:21 Temperature Pulse Rate 76 68 74 Respiratory 16 22 17 Rate Blood Pressure 162/81 162/81 162/81 O2 Sat by Pulse 99 98 99 Oximetry 04/10/20 04/10/20 19:31 19:40 Temperature Pulse Rate 85 77 Respiratory 16 23 Rate Blood Pressure 162/81 162/81 O2 Sat by Pulse 100 99 Oximetry ED Medical Decision Making - Lab Data Result diagrams: 04/12/20 05:42 04/12/20 11:40 - EKG Data -: EKG Interpreted by Me EKG shows normal: sinus rhythm Rate: normal - EKG Data Interpretation: no acute changes - Radiology Data Radiology results: report reviewed - Medical Decision Making Patient is 85-year-old female with history of advanced dementia and hypert ension. Patient brought to the emergency room from home accompanied by her son who is the caregiver. He stated that he noticed this afternoon that she is grabbing her right side, lower chest and right upper abdomen. He denied any cough recently. Patient is unable to provide any history. Son stated that she was doing well until next 2 to 3 days ago. Patient was found to have an oxygen saturation of 81% on room air improved to 95% on 2 L of oxygen. Labs reviewed and showed elevated white blood cells. Chest x-ray showed right lower lobe pneumonia. Patient started on Levaquin. Patient oxygen saturation dropped to 70s especially when she go to sleep. Patient put on oxygen and oxygen saturation improved to 95%. I discussed the patient with Dr. Tillman, he agreed to admit the patient to medical service for further management. Critical Care Time: Yes Critical care time in (mins) excluding proc time.: 30 Critical care attestation.: If time is entered above; I have spent that time in minutes in the direct care of this critically ill patient, excluding procedure time. ED Disposition Clinical Impression: Hypoxia, Right lower lobe pneumonia Disposition: OP ADMIT IP TO THIS HOSP Is pt being admited?: Yes Condition: Stable
[2020-04-10 14:56] LABS: Basophils # (Auto) 0.1 K/mm3 (0.0-0.1); Basophils % (Auto) 0.4 % (0.0-1.8); Eosinophils % (Auto) 0.2 % (0.0-4.3); Hematocrit 35.8 % (30.3-42.9); Lymphocytes % (Auto) 7.8 % (13.4-35.0); Mean Corpuscular HGB Conc 33 % (30-34); Mean Corpuscular Volume 88 fl (79-97); Monocytes % (Auto) 8.3 % (0.0-7.3); Platelet Count 226 K/mm3 (140-440); Red Blood Count 4.05 M/mm3 (3.65-5.03); Red Cell Distribution Width 13.9 % (13.2-15.2)
[2020-04-10 15:07] LABS: INR 1.07 (0.87-1.13)
[2020-04-10 15:08] LABS: Partial Thromboplastin Time 25.8 Sec. (24.2-36.6)
--- NOTE | 2020-04-10 15:08 | XRay Report ---
CHEST 1 VIEW 04/10/2020 1:54 PM INDICATION / CLINICAL INFORMATION: Dyspnea. COMPARISON: None available. FINDINGS: SUPPORT DEVICES: None. HEART / MEDIASTINUM: Stable. LUNGS / PLEURA: Mild bibasilar interstitial edema with small right pleural effusion. No pneumothorax. ADDITIONAL FINDINGS: No significant additional findings. IMPRESSION: 1. Mild bibasilar interstitial edema and small right effusion. Signer Name: Meredith Arenas MD Signed: 04/10/2020 3:03 PM Workstation Name: [id number]
[2020-04-10 15:21] LABS: BUN/Creatinine Ratio 18; Blood Urea Nitrogen 32 mg/dL (7-17); Calcium 10.2 mg/dL (8.4-10.2); Hemolysis Index 9
[2020-04-10 15:26] LABS: Alanine Aminotransferase 13 units/L (7-56); Albumin 3.9 g/dL (3.9-5); Bilirubin,Direct < 0.2 mg/dL (0-0.2)
[2020-04-10 16:58] LABS: Bilirubin,Urine NEG (Negative); Blood,Urine NEG (Negative); Color,Urine Yellow (Yellow); Hyaline Casts,Urine 1 /LPF; Mucus,Urine FEW /HPF; Protein,Urine <15 mg/dL mg/dL (Negative); RBC,Urine < 1.0 /HPF (0.0-6.0); Urobilinogen,Urine < 2.0 mg/dL (<2.0); WBC,Urine < 1.0 /HPF (0.0-6.0)
[2020-04-10] MEDS ORDERED: LORazepam 2 MG/ML VIAL IV ONE (17:27)
[2020-04-10] MEDS ORDERED: LORazepam 2 MG/ML VIAL ONE (17:57)
--- NOTE | 2020-04-11 03:12 | History and Physical Report ---
History of Present Illness Date of examination: 04/10/20 Date of admission: 04/10/20 17:01 Chief complaint: Right chest pain for 2 days History of present illness: 85-year-old female with history of hypertension, GERD, osteoporosis and dementia brought in by her son for pain in the right infra-axillary region for 2 days. Patient is unable to give any history. History is obtained from the patient's son who is accompanying the patient. Patient was hypoxic at the time of admission to the emergency room. Her oxygen saturation was 81% on room air which is improved to 95% on 2 L of oxygen. Work-up revealed a right lower lobe pneumonia because of which patient is being admitted. Chest pain is more with inspiration and less with expiration. - Past Medical History Hx Hypertension: Yes Hx Renal Disease: Yes Hx Arthritis: Yes Hx Dementia: Yes Additional medical history: stage 4 renal disease. - Surgical History Hx Breast Surgery: Yes Additional Surgical History: Breast surgery (breast CA), hysterectomy - Social History Smoking Status: Never Smoker Substance Use Type: None Family history Htn - Medications Home Medications: Home Medications Medication Instructions Recorded Confirmed Last Taken Type amLODIPine 10 mg PO QPM 12/06/13 11/08/18 Unknown History Lansoprazole [Prevacid] 30 mg PO DAILY 07/24/15 11/08/18 Unknown History Vitamin E 400 unit PO DAILY 07/24/15 11/08/18 Unknown History Alendronate Sodium [Fosamax] 70 mg PO QWEEK 11/08/18 11/08/18 Unknown History Ascorbic Acid [Vitamin C with Violeta 500 mg PO DAILY 11/08/18 11/08/18 Unknown History Hips] Cholecalciferol Vit D3 [Vitamin D3 400 unit PO DAILY 11/08/18 11/08/18 Unknown History 400 UNIT TAB] Glucosamine Sulfate [Cidatrine] 1,000 mg PO DAILY 11/08/18 11/08/18 Unknown History Memantine HCl [Namenda Xr] 28 mg PO DAILY 11/08/18 11/08/18 Unknown History Multivit-Min/Iron/Folic/Lutein 1 each PO DAILY 11/08/18 11/08/18 Unknown History [Centrum Silver Women Tablet] Verapamil ER [Calan SR] 240 mg PO DAILY 11/08/18 11/08/18 Unknown History Ipratropium/Albuterol Sulfate 1 ampul IH Q8H #90 ampul.neb 11/15/18 Unknown Rx [DUONEB *Not for PRN Use*] traMADoL [Ultram] 50 mg PO Q6HR PRN #14 tablet 11/15/18 Unknown Rx Sennosides/Docusate Sodium [Senna 1 each PO BID 15 Days #30 capsule 08/04/19 Unknown Rx Plus 8.6-50 mg Softgel] Review of Systems ROS: Stated complaint: BREAST PAIN Other details as noted in HPI Comment: All other systems reviewed and negative Constitutional: denies: chills, fever Respiratory: denies: cough, shortness of breath, SOB with exertion, SOB at rest Cardiovascular: chest pain. denies: palpitations Gastrointestinal: abdominal pain. denies: nausea, vomiting Musculoskeletal: denies: back pain Neurological: weakness Medications and Allergies Allergies Allergy/AdvReac Type Severity Reaction Status Date / Time No Known Allergies Allergy Verified 11/08/18 11:32 Home Medications Medication Instructions Recorded Confirmed Last Taken Type Lansoprazole [Prevacid] 30 mg PO DAILY 07/24/15 04/10/20 Unknown History Vitamin E 400 unit PO DAILY 07/24/15 04/10/20 Unknown History Ascorbic Acid [Vitamin C with Violeta 500 mg PO DAILY 11/08/18 04/10/20 Unknown History Hips] Cholecalciferol Vit D3 [Vitamin D3 400 unit PO DAILY 11/08/18 04/10/20 Unknown History 400 UNIT TAB] Memantine HCl [Namenda Xr] 28 mg PO DAILY 11/08/18 04/10/20 Unknown History Multivit-Min/Iron/Folic/Lutein 1 each PO DAILY 11/08/18 04/10/20 Unknown History [Centrum Silver Women Tablet] Verapamil ER [Calan SR] 240 mg PO DAILY 11/08/18 04/10/20 Unknown History Loratadine [Claritin] 10 mg PO DAILY 04/10/20 04/10/20 Unknown History Olmesartan (Nf) [Benicar (Nf)] 40 mg PO QDAY 04/10/20 04/10/20 Unknown History Exam - Constitutional Vitals: Temp Pulse Resp BP Pulse Ox 97.8 F 97 H 18 156/87 97 04/11/20 00:01 04/11/20 01:08 04/11/20 01:08 04/11/20 01:08 04/11/20 01:08 General appearance: Present: mild distress, well-nourished - EENT Eyes: Present: PERRL ENT: hearing intact, clear oral mucosa - Neck Neck: Present: supple, normal ROM - Respiratory Respiratory effort: normal Respiratory: bilateral: CTA, rhonchi - Cardiovascular Heart rate: 78 Rhythm: regular Heart Sounds: Present: S1 & S2. Absent: rub, click - Extremities Extremities: no ischemia, pulses intact, pulses symmetrical, No edema Peripheral Pulses: within normal limits - Abdominal General gastrointestinal: Present: soft, non-tender, non-distended, normal bowel sounds Female genitourinary: Present: normal - Rectal Rectal Exam: deferred - Integumentary Integumentary: Present: clear, warm, dry - Musculoskeletal Musculoskeletal: gait normal, strength equal bilaterally - Psychiatric Psychiatric: appropriate mood/affect, intact judgment & insight - Neurologic Neurologic: CNII-XII intact, moves all extremities - Allied Health Allied health notes reviewed: nursing, case management HEART Score - HEART Score History: Moderately suspicious Age: > 65 Risk factors: 1-2 risk factors Troponin: Troponin T < 0.010 ng/mL (0.00-0.029) 04/10/20 19:28 Troponin: < normal limit - Critical Actions Critical Actions: 4-6 pts:12-16.6% risk of adverse cardiac event. Should be admitted Results - Labs CBC & Chem 7: 04/10/20 14:28 04/10/20 14:28 Labs: Laboratory Last Values WBC 12.4 K/mm3 (4.5-11.0) H 04/10/20 14:28 RBC 4.05 M/mm3 (3.65-5.03) 04/10/20 14:28 Hgb 12.0 gm/dl (10.1-14.3) 04/10/20 14:28 Hct 35.8 % (30.3-42.9) 04/10/20 14:28 MCV 88 fl (79-97) 04/10/20 14:28 MCH 30 pg (28-32) 04/10/20 14:28 MCHC 33 % (30-34) 04/10/20 14:28 RDW 13.9 % (13.2-15.2) 04/10/20 14:28 Plt Count 226 K/mm3 (140-440) 04/10/20 14:28 Lymph % (Auto) 7.8 % (13.4-35.0) L 04/10/20 14:28 [place] % (Auto) 8.3 % (0.0-7.3) H 04/10/20 14:28 Eos % (Auto) 0.2 % (0.0-4.3) 04/10/20 14:28 Baso % (Auto) 0.4 % (0.0-1.8) 04/10/20 14:28 Lymph # (Auto) 1.0 K/mm3 (1.2-5.4) L 04/10/20 14:28 [place] # (Auto) 1.0 K/mm3 (0.0-0.8) H 04/10/20 14:28 Eos # (Auto) 0.0 K/mm3 (0.0-0.4) 04/10/20 14:28 Baso # (Auto) 0.1 K/mm3 (0.0-0.1) 04/10/20 14:28 Seg Neutrophils % 83.3 % (40.0-70.0) H 04/10/20 14:28 Seg Neutrophils # 10.3 K/mm3 (1.8-7.7) H 04/10/20 14:28 PT 14.1 Sec. (12.2-14.9) 04/10/20 14:28 INR 1.07 (0.87-1.13) 04/10/20 14:28 APTT 25.8 Sec. (24.2-36.6) 04/10/20 14:28 Sodium 138 mmol/L (137-145) 04/10/20 14:28 Potassium 4.8 mmol/L (3.6-5.0) 04/10/20 14:28 Chloride 100.5 mmol/L (98-107) 04/10/20 14:28 Carbon Dioxide 21 mmol/L (22-30) L 04/10/20 14:28 Anion Gap 21 mmol/L 04/10/20 14:28 BUN 32 mg/dL (7-17) H 04/10/20 14:28 Creatinine 1.8 mg/dL (0.6-1.2) H 04/10/20 14:28 Estimated GFR 27 ml/min 04/10/20 14:28 BUN/Creatinine Ratio 18 % 10/07/20 14:28 Glucose 102 mg/dL (65-100) H 04/10/20 14:28 Lactic Acid 1.70 mmol/L (0.7-2.0) 04/10/20 14:28 Calcium 10.2 mg/dL (8.4-10.2) 04/10/20 14:28 Total Bilirubin 0.40 mg/dL (0.1-1.2) 04/10/20 14:28 Direct Bilirubin < 0.2 mg/dL (0-0.2) 04/10/20 14:28 Indirect Bilirubin 0.2 mg/dL 04/10/20 14:28 AST 14 units/L (5-40) 04/10/20 14:28 ALT 13 units/L (7-56) 04/10/20 14:28 Alkaline Phosphatase 88 units/L (35-129) 04/10/20 14:28 Troponin T < 0.010 ng/mL (0.00-0.029) 04/10/20 19:28 NT-Pro-B Natriuret Pep 1154 pg/mL (0-900) H 04/10/20 14:28 Total Protein 6.8 g/dL (6.3-8.2) 04/10/20 14:28 Albumin 3.9 g/dL (3.9-5) 04/10/20 14:28 Albumin/Globulin Ratio 1.3 % 04/10/20 14:28 Lipase 36 units/L (13-60) 04/10/20 14:28 Urine Color Yellow (Yellow) 04/10/20 16:32 Urine Turbidity Clear (Clear) 04/10/20 16:32 Urine pH 6.0 (5.0-7.0) 04/10/20 16:32 Ur Specific [place] 1.014 (1.003-1.030) 04/10/20 16:32 Urine Protein <15 mg/dl mg/dL (Negative) 04/10/20 16:32 Urine Glucose (UA) Neg mg/dL (Negative) 04/10/20 16:32 Urine Ketones Neg mg/dL (Negative) 04/10/20 16:32 Urine Blood Neg (Negative) 04/10/20 16:32 Urine Nitrite Neg (Negative) 04/10/20 16:32 Urine Bilirubin Neg (Negative) 04/10/20 16:32 Urine Urobilinogen < 2.0 mg/dL (<2.0) 04/10/20 16:32 Ur Leukocyte Esterase Neg (Negative) 04/10/20 16:32 Urine WBC (Auto) < 1.0 /HPF (0.0-6.0) 04/10/20 16:32 Urine RBC (Auto) < 1.0 /HPF (0.0-6.0) 04/10/20 16:32 U Epithel Cells (Auto) < 1.0 /HPF (0-13.0) 04/10/20 16:32 Hyaline Casts 1 /LPF 04/10/20 16:32 Urine Mucus Few /HPF 04/10/20 16:32 Microbiology: Microbiology 04/10/20 14:28 Peripheral/Venous Blood Culture - Preliminary Culture in Progress 04/10/20 14:39 Peripheral/Venous Blood Culture - Preliminary Culture in Progress - Imaging and Cardiology EKG: report reviewed (Sinus tachycardia heart rate of 100) Chest x-ray: report reviewed Imaging and Cardiology: Chest x-ray Mild bibasilar interstitial edema and small right effusion Garcia/IV: IV Catheter Type [Left INT / Saline Lock Antecubital] Assessment and Plan Advance Directives: Yes (Full code) VTE prophylaxis?: Chemical Plan of care discussed with patient/family: Yes - Patient Problems (1) SIRS (systemic inflammatory response syndrome) Current Visit: Yes Status: Acute Plan to address problem: Patient has fever and right-sided chest pain possibly secondary to pleurisy caused by right lower lobe pneumonia (2) Right lower lobe pneumonia Current Visit: Yes Status: Acute Plan to address problem: IV ceftriaxone and IV Zithromax. (3) SYL (acute kidney injury) Current Visit: Yes Status: Acute Plan to address problem: IV fluids for now Check creatinine (4) Person under investigation for COVID-19 Current Visit: Yes Status: Acute Plan to address problem: Coronavirus PCR in a.m. (5) Dementia Current Visit: No Status: Chronic Qualifiers: Dementia type: vascular dementia Plan to address problem: Continue Namenda (6) Hypertension Current Visit: Yes Status: Chronic Qualifiers: Hypertension type: essential hypertension Qualified Code(s): I10 - Essential (primary) hypertension Plan to address problem: Continue antihypertensives (7) COPD (chronic obstructive pulmonary disease) Current Visit: Yes Status: Chronic Qualifiers: Chronic bronchitis type: unspecified Plan to address problem: DuoNebs as needed (8) DVT prophylaxis Current Visit: Yes Status: Acute Plan to address problem: On heparin and GI prophylaxis
[2020-04-11] MEDS ORDERED: MORPHINE 2 MG/1 ML INJ IV PRN (03:24)
[2020-04-11] MEDS ORDERED: ACETAMINOPHEN 325 MG TAB PO PRN (03:24)
[2020-04-11] MEDS ORDERED: ONDANSETRON 4 MG/2 ML INJ IV PRN (03:24)
[2020-04-11] MEDS ORDERED: IPRATROPIUM/ALBUTEROL SULFATE 3 ML AMPUL.NEB IH PRN (03:25)
[2020-04-11] MEDS ORDERED: ALBUTEROL 2.5 MG/3 ML NEBU IH PRN (03:48)
[2020-04-11] MEDS: HEPARIN 5,000 UNIT/1 ML VIAL SUB-Q SCH ×3 (04:44→21:42)
[2020-04-11] MEDS: SODIUM CHLORIDE 0.9% 1000 ML 1,000 ML IV SCH ×2 (04:45→18:54)
--- NOTE | 2020-04-11 08:34 | Nuclear Medicine Report ---
NUCLEAR MEDICINE PERFUSION LUNG SCAN INDICATION: Shortness of breath TECHNIQUE: 5 mCi of Tc 99m MAA were given by IV. Ventilation images were not obtained due to current COVID precautions. FINDINGS: Comparison with chest radiograph from 04/10/2020 No wedge-shaped peripheral perfusion defects are noted. Moderate cardiomegaly is noted. Photopenic defect from right pleural effusion is noted. IMPRESSION: Low probability for pulmonary embolism based on perfusion images alone. Signer Name: Amna Zapata MD Signed: 04/11/2020 8:30 AM Workstation Name: [id number]
--- NOTE | 2020-04-11 10:05 | Progress Note ---
Assessment and Plan Assessment and plan: (1) SIRS (systemic inflammatory response syndrome) Current Visit: Yes Status: Acute Plan to address problem: Patient has fever and right-sided chest pain possibly secondary to pleurisy caused by right lower lobe pneumonia (2) Right lower lobe pneumonia Current Visit: Yes Status: Acute Plan to address problem: IV ceftriaxone and IV Zithromax. (3) SYL (acute kidney injury) Current Visit: Yes Status: Acute Plan to address problem: IV fluids for now Check creatinine (4) Person under investigation for COVID-19 Current Visit: Yes Status: Acute Plan to address problem: Coronavirus PCR in a.m. (5) Dementia Current Visit: No Status: Chronic Qualifiers: Dementia type: vascular dementia Plan to address problem: Continue Namenda (6) Hypertension Current Visit: Yes Status: Chronic Qualifiers: Hypertension type: essential hypertension Qualified Code(s): I10 - Essential (primary) hypertension Plan to address problem: Continue antihypertensives (7) COPD (chronic obstructive pulmonary disease) Current Visit: Yes Status: Chronic Qualifiers: Chronic bronchitis type: unspecified Plan to address problem: DuoNebs as needed (8) DVT prophylaxis Current Visit: Yes Status: Acute Plan to address problem: On heparin and GI prophylaxis History Interval history: Patient was seen and evaluated this morning Patient did not have any chest pain Patient is on 10 L of venturi mask Hospitalist Physical - Physical exam Narrative exam: Patient is on 10 L of Ventimask The patient appeared well nourished and normally developed. Vital signs as documented. Head exam is unremarkable. No scleral icterus . Neck is without jugular venous distension, thyromegaly, or carotid bruits. Lungs are clear to auscultation. Cardiac exam reveals regular rate and Rhythm. Abdominal exam reveals normal bowel sounds, nontender, no organomegaly. Extremities are nonedematous and both femoral and pedal pulses are normal. SLEEVE MAKER: Alert and oriented 3. No focal weakness. - Constitutional Vitals: Temp Pulse Resp BP Pulse Ox 98.9 F 85 22 153/69 99 04/11/20 09:01 04/11/20 09:01 04/11/20 09:01 04/11/20 09:01 04/11/20 09:01 General appearance: Present: mild distress, well-nourished HEART Score - HEART Score Age: > 65 Risk factors: 1-2 risk factors Troponin: Troponin T < 0.010 ng/mL (0.00-0.029) 04/10/20 19:28 Troponin: < normal limit - Critical Actions Critical Actions: 4-6 pts:12-16.6% risk of adverse cardiac event. Should be admitted Results - Labs CBC & Chem 7: 04/10/20 14:28 04/10/20 14:28 Labs: Laboratory Last Values WBC 12.4 K/mm3 (4.5-11.0) H 04/10/20 14:28 RBC 4.05 M/mm3 (3.65-5.03) 04/10/20 14:28 Hgb 12.0 gm/dl (10.1-14.3) 04/10/20 14:28 Hct 35.8 % (30.3-42.9) 04/10/20 14:28 MCV 88 fl (79-97) 04/10/20 14:28 MCH 30 pg (28-32) 04/10/20 14:28 MCHC 33 % (30-34) 04/10/20 14:28 RDW 13.9 % (13.2-15.2) 04/10/20 14:28 Plt Count 226 K/mm3 (140-440) 04/10/20 14:28 Lymph % (Auto) 7.8 % (13.4-35.0) L 04/10/20 14:28 [place] % (Auto) 8.3 % (0.0-7.3) H 04/10/20 14:28 Eos % (Auto) 0.2 % (0.0-4.3) 04/10/20 14:28 Baso % (Auto) 0.4 % (0.0-1.8) 04/10/20 14:28 Lymph # (Auto) 1.0 K/mm3 (1.2-5.4) L 04/10/20 14:28 [place] # (Auto) 1.0 K/mm3 (0.0-0.8) H 04/10/20 14:28 Eos # (Auto) 0.0 K/mm3 (0.0-0.4) 04/10/20 14:28 Baso # (Auto) 0.1 K/mm3 (0.0-0.1) 04/10/20 14:28 Seg Neutrophils % 83.3 % (40.0-70.0) H 04/10/20 14:28 Seg Neutrophils # 10.3 K/mm3 (1.8-7.7) H 04/10/20 14:28 PT 14.1 Sec. (12.2-14.9) 04/10/20 14:28 INR 1.07 (0.87-1.13) 04/10/20 14:28 APTT 25.8 Sec. (24.2-36.6) 04/10/20 14:28 Sodium 138 mmol/L (137-145) 04/10/20 14:28 Potassium 4.8 mmol/L (3.6-5.0) 04/10/20 14:28 Chloride 100.5 mmol/L (98-107) 04/10/20 14:28 Carbon Dioxide 21 mmol/L (22-30) L 04/10/20 14:28 Anion Gap 21 mmol/L 04/10/20 14:28 BUN 32 mg/dL (7-17) H 04/10/20 14:28 Creatinine 1.8 mg/dL (0.6-1.2) H 04/10/20 14:28 Estimated GFR 27 ml/min 04/10/20 14:28 BUN/Creatinine Ratio 18 % 04/10/20 14:28 Glucose 102 mg/dL (65-100) H 04/10/20 14:28 Hemoglobin A1c 5.2 % (4-6) 04/11/20 04:17 Lactic Acid 1.70 mmol/L (0.7-2.0) 04/10/20 14:28 Calcium 10.2 mg/dL (8.4-10.2) 04/10/20 14:28 Total Bilirubin 0.40 mg/dL (0.1-1.2) 04/10/20 14:28 Direct Bilirubin < 0.2 mg/dL (0-0.2) 04/10/20 14:28 Indirect Bilirubin 0.2 mg/dL 04/10/20 14:28 AST 14 units/L (5-40) 04/10/20 14:28 ALT 13 units/L (7-56) 04/10/20 14:28 Alkaline Phosphatase 88 units/L (35-129) 04/10/20 14:28 Troponin T < 0.010 ng/mL (0.00-0.029) 04/10/20 19:28 C-Reactive Protein 9.50 mg/dL (0.00-1.30) H 04/11/20 04:17 NT-Pro-B Natriuret Pep 1154 pg/mL (0-900) H 04/10/20 14:28 Total Protein 6.8 g/dL (6.3-8.2) 04/10/20 14:28 Albumin 3.9 g/dL (3.9-5) 04/10/20 14:28 Albumin/Globulin Ratio 1.3 % 04/10/20 14:28 Lipase 36 units/L (13-60) 04/10/20 14:28 Urine Color Yellow (Yellow) 04/10/20 16:32 Urine Turbidity Clear (Clear) 04/10/20 16:32 Urine pH 6.0 (5.0-7.0) 04/10/20 16:32 Ur Specific [place] 1.014 (1.003-1.030) 04/10/20 16:32 Urine Protein <15 mg/dl mg/dL (Negative) 04/10/20 16:32 Urine Glucose (UA) Neg mg/dL (Negative) 04/10/20 16:32 Urine Ketones Neg mg/dL (Negative) 04/10/20 16:32 Urine Blood Neg (Negative) 04/10/20 16:32 Urine Nitrite Neg (Negative) 04/10/20 16:32 Urine Bilirubin Neg (Negative) 04/10/20 16:32 Urine Urobilinogen < 2.0 mg/dL (<2.0) 04/10/20 16:32 Ur Leukocyte Esterase Neg (Negative) 04/10/20 16:32 Urine WBC (Auto) < 1.0 /HPF (0.0-6.0) 04/10/20 16:32 Urine RBC (Auto) < 1.0 /HPF (0.0-6.0) 04/10/20 16:32 U Epithel Cells (Auto) < 1.0 /HPF (0-13.0) 04/10/20 16:32 Hyaline Casts 1 /LPF 04/10/20 16:32 Urine Mucus Few /HPF 04/10/20 16:32 Microbiology: Microbiology 04/10/20 14:28 Peripheral/Venous Blood Culture - Preliminary Culture in Progress 04/10/20 14:39 Peripheral/Venous Blood Culture - Preliminary Culture in Progress Garcia/IV: Voiding Method External Female Catheter IV Catheter Type [Left INT / Saline Lock Antecubital] Active Medications - Current Medications Current Medications: Generic Name Dose Route Start Last Admin Trade Name Freq PRN Reason Stop Dose Admin Acetaminophen 650 mg 04/11/20 03:24 Tylenol PO Q4H PRN Pain MILD(1-3)/Fever >100.5/GLASS Albuterol 2.5 mg 04/11/20 03:48 Proventil IH Q3HRT PRN Shortness Of Breath Famotidine 20 mg 04/11/20 10:00 Pepcid IV QAM SUMMER Heparin Sodium (Porcine) 5,000 unit 04/11/20 03:30 04/11/20 04:44 Heparin SUB-Q 5,000 unit Q12HR SUMMER Administration Sodium Chloride 1,000 mls @ 75 mls/hr 04/11/20 03:30 04/11/20 04:45 Nacl 0.9% 1000 Ml IV 75 mls/hr DIRECT SUMMER Administration Levofloxacin/Dextrose 750 mg in 150 mls @ 100 mls/hr 04/11/20 10:00 Levaquin 750mg/150ml IV Q48HR SUMMER Protocol Morphine Sulfate 2 mg 04/11/20 03:24 Morphine IV Q4H PRN Pain, Moderate (4-6) Ondansetron HCl 4 mg 04/11/20 03:24 Zofran IV Q8H PRN Nausea And Vomiting Sodium Chloride 10 ml 04/11/20 10:00 Sodium Chloride Flush Syringe 10 Ml IV BID SUMMER Sodium Chloride 10 ml 04/11/20 03:24 04/11/20 04:46 Sodium Chloride Flush Syringe 10 Ml IV 10 ml PRN PRN Administration LINE FLUSH
[2020-04-11] MEDS: FAMOTIDINE 20 MG/2 ML INJ IV SCH (10:18)
[2020-04-11 15:57] LABS: Calcium 9.5 mg/dL (8.4-10.2)
[2020-04-12 06:43] LABS: Basophils % (Auto) 0.6 % (0.0-1.8); Eosinophils # (Auto) 0.1 K/mm3 (0.0-0.4); Eosinophils % (Auto) 1.2 % (0.0-4.3); Hematocrit 33.5 % (30.3-42.9); Hemoglobin 11.4 gm/dl (10.1-14.3); Lymphocytes # (Auto) 0.9 K/mm3 (1.2-5.4); Lymphocytes % (Auto) 10.9 % (13.4-35.0); Mean Corpuscular HGB Conc 34 % (30-34); Mean Corpuscular Volume 88 fl (79-97); Monocytes # (Auto) 0.8 K/mm3 (0.0-0.8); Monocytes % (Auto) 10.6 % (0.0-7.3); Platelet Count 214 K/mm3 (140-440); Red Blood Count 3.79 M/mm3 (3.65-5.03); Red Cell Distribution Width 13.7 % (13.2-15.2)
--- NOTE | 2020-04-12 08:40 | Progress Note ---
Assessment and Plan Assessment and plan: (1) Sepsis Current Visit: Yes Status: Acute Plan to address problem: Patient has fever and right-sided chest pain possibly secondary to pleurisy caused by right lower lobe pneumonia (2) Right lower lobe pneumonia Current Visit: Yes Status: Acute Plan to address problem: IV ceftriaxone and IV Zithromax. (3) SYL (acute kidney injury) Current Visit: Yes Status: Acute Plan to address problem: due to vasomotor nephropathy (4) Person under investigation for COVID-19 Current Visit: Yes Status: Acute Plan to address problem: Coronavirus PCR in a.m. (5) Dementia Current Visit: No Status: Chronic Qualifiers: Dementia type: vascular dementia Plan to address problem: Continue Namenda (6) Hypertension Current Visit: Yes Status: Chronic Qualifiers: Hypertension type: essential hypertension Qualified Code(s): I10 - Essential (primary) hypertension Plan to address problem: Continue antihypertensives (7) COPD (chronic obstructive pulmonary disease) Current Visit: Yes Status: Chronic Qualifiers: Chronic bronchitis type: unspecified Plan to address problem: DuoNebs as needed (8) DVT prophylaxis Current Visit: Yes Status: Acute Plan to address problem: On heparin and GI prophylaxis History Interval history: Patient was seen and evaluated this morning Patient did not have any chest pain Patient is on 10 L of venturi mask Hospitalist Physical - Physical exam Narrative exam: Patient is on 10 L of Ventimask The patient appeared well nourished and normally developed. Vital signs as documented. Head exam is unremarkable. No scleral icterus . Neck is without jugular venous distension, thyromegaly, or carotid bruits. Lungs are clear to auscultation. Cardiac exam reveals regular rate and Rhythm. Abdominal exam reveals normal bowel sounds, nontender, no organomegaly. Extremities are nonedematous and both femoral and pedal pulses are normal. POWERHOUSE TENDER: Alert and oriented 3. No focal weakness. - Constitutional Vitals: Temp Pulse Resp BP Pulse Ox 97.9 F 116 H 24 180/91 89 04/12/20 03:35 04/12/20 06:50 04/12/20 03:35 04/12/20 06:50 04/12/20 03:35 General appearance: Present: mild distress, well-nourished HEART Score - HEART Score Age: > 65 Risk factors: 1-2 risk factors Troponin: Troponin T < 0.010 ng/mL (0.00-0.029) 04/10/20 19:28 Troponin: < normal limit - Critical Actions Critical Actions: 4-6 pts:12-16.6% risk of adverse cardiac event. Should be admitted Results - Labs CBC & Chem 7: 04/12/20 05:42 04/12/20 05:42 Labs: Laboratory Last Values WBC 7.9 K/mm3 (4.5-11.0) 04/12/20 05:42 RBC 3.79 M/mm3 (3.65-5.03) 04/12/20 05:42 Hgb 11.4 gm/dl (10.1-14.3) 04/12/20 05:42 Hct 33.5 % (30.3-42.9) 04/12/20 05:42 MCV 88 fl (79-97) 04/12/20 05:42 MCH 30 pg (28-32) 04/12/20 05:42 MCHC 34 % (30-34) 04/12/20 05:42 RDW 13.7 % (13.2-15.2) 04/12/20 05:42 Plt Count 214 K/mm3 (140-440) 04/12/20 05:42 Lymph % (Auto) 10.9 % (13.4-35.0) L 04/12/20 05:42 Lucas % (Auto) 10.6 % (0.0-7.3) H 04/12/20 05:42 Eos % (Auto) 1.2 % (0.0-4.3) 04/12/20 05:42 Baso % (Auto) 0.6 % (0.0-1.8) 04/12/20 05:42 Lymph # (Auto) 0.9 K/mm3 (1.2-5.4) L 04/12/20 05:42 Lucas # (Auto) 0.8 K/mm3 (0.0-0.8) 04/12/20 05:42 Eos # (Auto) 0.1 K/mm3 (0.0-0.4) 04/12/20 05:42 Baso # (Auto) 0.0 K/mm3 (0.0-0.1) 04/12/20 05:42 Seg Neutrophils % 76.7 % (40.0-70.0) H 04/12/20 05:42 Seg Neutrophils # 6.0 K/mm3 (1.8-7.7) 04/12/20 05:42 PT 14.1 Sec. (12.2-14.9) 04/10/20 14:28 INR 1.07 (0.87-1.13) 04/10/20 14:28 APTT 25.8 Sec. (24.2-36.6) 04/10/20 14:28 Sodium 135 mmol/L (137-145) L 04/11/20 15:13 Potassium 4.4 mmol/L (3.6-5.0) 04/11/20 15:13 Chloride 99.7 mmol/L (98-107) 04/11/20 15:13 Carbon Dioxide 20 mmol/L (22-30) L 04/11/20 15:13 Anion Gap 20 mmol/L 04/11/20 15:13 BUN 26 mg/dL (7-17) H 04/11/20 15:13 Creatinine 1.5 mg/dL (0.6-1.2) H 04/11/20 15:13 Estimated GFR 33 ml/min 04/11/20 15:13 BUN/Creatinine Ratio 17 % 04/11/20 15:13 Glucose 102 mg/dL (65-100) H 04/11/20 15:13 Hemoglobin A1c 5.2 % (4-6) 04/11/20 04:17 Lactic Acid 1.70 mmol/L (0.7-2.0) 04/10/20 14:28 Calcium 9.5 mg/dL (8.4-10.2) 04/11/20 15:13 Total Bilirubin 0.40 mg/dL (0.1-1.2) 04/10/20 14:28 Direct Bilirubin < 0.2 mg/dL (0-0.2) 04/10/20 14:28 Indirect Bilirubin 0.2 mg/dL 04/10/20 14:28 AST 14 units/L (5-40) 04/10/20 14:28 ALT 13 units/L (7-56) 04/10/20 14:28 Alkaline Phosphatase 88 units/L (35-129) 04/10/20 14:28 Troponin T < 0.010 ng/mL (0.00-0.029) 04/10/20 19:28 C-Reactive Protein 9.50 mg/dL (0.00-1.30) H 04/11/20 04:17 NT-Pro-B Natriuret Pep 1154 pg/mL (0-900) H 04/10/20 14:28 Total Protein 6.8 g/dL (6.3-8.2) 04/10/20 14:28 Albumin 3.9 g/dL (3.9-5) 04/10/20 14:28 Albumin/Globulin Ratio 1.3 % 04/10/20 14:28 Lipase 36 units/L (13-60) 04/10/20 14:28 Urine Color Yellow (Yellow) 04/10/20 16:32 Urine Turbidity Clear (Clear) 04/10/20 16:32 Urine pH 6.0 (5.0-7.0) 04/10/20 16:32 Ur Specific [place] 1.014 (1.003-1.030) 04/10/20 16:32 Urine Protein <15 mg/dl mg/dL (Negative) 04/10/20 16:32 Urine Glucose (UA) Neg mg/dL (Negative) 04/10/20 16:32 Urine Ketones Neg mg/dL (Negative) 04/10/20 16:32 Urine Blood Neg (Negative) 04/10/20 16:32 Urine Nitrite Neg (Negative) 04/10/20 16:32 Urine Bilirubin Neg (Negative) 04/10/20 16:32 Urine Urobilinogen < 2.0 mg/dL (<2.0) 04/10/20 16:32 Ur Leukocyte Esterase Neg (Negative) 04/10/20 16:32 Urine WBC (Auto) < 1.0 /HPF (0.0-6.0) 04/10/20 16:32 Urine RBC (Auto) < 1.0 /HPF (0.0-6.0) 04/10/20 16:32 U Epithel Cells (Auto) < 1.0 /HPF (0-13.0) 04/10/20 16:32 Hyaline Casts 1 /LPF 04/10/20 16:32 Urine Mucus Few /HPF 04/10/20 16:32 Coronavirus (PCR) Negative (Negative) 04/11/20 10:24 Microbiology: Microbiology 04/10/20 14:28 Peripheral/Venous Blood Culture - Preliminary NO GROWTH AFTER 24 HOURS 04/10/20 14:39 Peripheral/Venous Blood Culture - Preliminary NO GROWTH AFTER 24 HOURS Garcia/IV: Voiding Method External Female Catheter IV Catheter Type [Left INT / Saline Lock Antecubital] Active Medications - Current Medications Current Medications: Generic Name Dose Route Start Last Admin Trade Name Freq PRN Reason Stop Dose Admin Acetaminophen 650 mg 04/11/20 03:24 Tylenol PO Q4H PRN Pain MILD(1-3)/Fever >100.5/GLASS Albuterol 2.5 mg 04/11/20 03:48 Proventil IH Q3HRT PRN Shortness Of Breath Famotidine 20 mg 04/11/20 10:00 04/11/20 10:18 Pepcid IV 20 mg QAM SUMMER Administration Heparin Sodium (Porcine) 5,000 unit 04/11/20 03:30 04/11/20 21:42 Heparin SUB-Q 5,000 unit Q12HR SUMMER Administration Sodium Chloride 1,000 mls @ 75 mls/hr 04/11/20 03:30 04/11/20 18:54 Nacl 0.9% 1000 Ml IV 75 mls/hr DIRECT SUMMER Administration Levofloxacin/Dextrose 750 mg in 150 mls @ 100 mls/hr 04/11/20 10:00 04/11/20 10:18 Levaquin 750mg/150ml IV 100 mls/hr Q48HR SUMMER Administration Protocol Morphine Sulfate 2 mg 04/11/20 03:24 Morphine IV Q4H PRN Pain, Moderate (4-6) Ondansetron HCl 4 mg 04/11/20 03:24 Zofran IV Q8H PRN Nausea And Vomiting Sodium Chloride 10 ml 04/11/20 10:00 04/11/20 21:44 Sodium Chloride Flush Syringe 10 Ml IV 10 ml BID SUMMER Administration Sodium Chloride 10 ml 04/11/20 03:24 04/12/20 06:52 Sodium Chloride Flush Syringe 10 Ml IV 10 ml PRN PRN Administration LINE FLUSH Verapamil HCl 240 mg 04/12/20 10:00 Calan Sr PO DAILY SUMMER Nutrition/Malnutrition Assess - Dietary Evaluation Nutrition/Malnutrition Findings: Nutrition Notes Start: 04/11/20 12:38 Freq: Status: Active Protocol: Document 04/11/20 12:38 LIZ (Rec: 04/11/20 13:13 LIZ [id number]) Co-Sign 04/11/20 12:38 LP Nutrition Notes 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 Octaviano Score 16. Noted scalp abrasion. No WOC consult, but OT consulted. Noted dinner 25% last night. Per RN/tech, pt ate 3 bites of breakfast. No history of intakes or wt, will reassess for malnutrition upon follow up. Burn Absent Trauma Absent GI Symptoms None Current % PO Negligible Minimum of two criteria No physical signs of malnutrition #1 Nutrition Diagnosis Inadequate oral intake Etiology advanced age and acute on chronic disease As Evidenced by Signs and Symptoms pt eating <25% of meals Is patient on ventilator? 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
[2020-04-12 08:56] VITALS: BP 168/75
[2020-04-12 09:08] LABS: Albumin 3.2 g/dL (3.9-5)
[2020-04-12] MEDS ORDERED: VERAPAMIL ER 240 MG TAB PO SCH (10:00)
[2020-04-12] MEDS: HEPARIN 5,000 UNIT/1 ML VIAL SUB-Q SCH (10:25)
[2020-04-12] MEDS: FAMOTIDINE 20 MG/2 ML INJ IV SCH (10:25)
[2020-04-12] MEDS: SODIUM CHLORIDE 0.9% 1000 ML 1,000 ML IV SCH (10:26)
--- NOTE | 2020-04-12 10:37 | Discharge Summary ---
Providers - Providers Date of Admission: 04/10/20 17:01 Date of discharge: 04/12/20 Attending physician: MABEL GARCIA MD 04/11/20 10:04 Physical Therapy Evaluation and Treat [CONS] Routine Comment: Reason For Exam: weakness 04/11/20 10:05 Occupational Therapy Evaluate and Treat [CONS] Routine Comment: Reason For Exam: generalized weakness [facility] Reason for admission: Acute on chronic hypoxic respiratory failure, right lower lobe pneumonia Condition: Stable Pertinent studies: cxr Hospital course: 85-year-old female with history of hypertension, GERD, osteoporosis and dementia brought in by her son for pain in the right infra-axillary region for 2 days. Patient is unable to give any history. History is obtained from the patient's son who is accompanying the patient. Patient was hypoxic at the time of ad mission to the emergency room. Her oxygen saturation was 81% on room air which is improved to 95% on 2 L of oxygen. Work-up revealed a right lower lobe pneumonia because of which patient is being admitted. Chest pain is more with inspiration and less with expiration. Patient was admitted to the floor and was treated with IV antibiotics for pneumonia, and also treated for COPD. This morning patient off oxygen and doing well. I have discussed with her son and he said she has home oxygen but she usually refused to wear it, he also said she has nebulizer treatment but she refused to use it. The son wants to take her home and she is stable and discharged home with p.o. antibiotics. I have advised the son to take her O2 sats saturation and use nebulizer treatment and oxygen as needed. Patient was hemodynamically stable at the time of discharge. Disposition: TO HOME OR SELFCARE Time spent for discharge: 32 minutes - Discharge Diagnoses (1) Hypoxia Status: Acute (2) Right lower lobe pneumonia Status: Acute (3) COPD (chronic obstructive pulmonary disease) Status: Chronic Qualifiers: Chronic bronchitis type: unspecified (4) Hypertension Status: Chronic Qualifiers: Hypertension type: essential hypertension Qualified Code(s): I10 - Essential (primary) hypertension (5) Acute kidney failure Status: Acute (6) Dementia Status: Chronic Qualifiers: Dementia type: vascular dementia Core Measure Documentation - Palliative Care Palliative Care/ Comfort Measures: Not Applicable - Core Measures Any of the following diagnoses?: none Exam - Physical Exam Narrative exam: Patient is on 10 L of Ventimask The patient appeared well nourished and normally developed. Vital signs as documented. Head exam is unremarkable. No scleral icterus . Neck is without jugular venous distension, thyromegaly, or carotid bruits. Lungs are clear to auscultation. Cardiac exam reveals regular rate and Rhythm. Abdominal exam reveals normal bowel sounds, nontender, no organomegaly. Extremities are nonedematous and both femoral and pedal pulses are normal. SURVEILLANCE OFFICER: Alert and oriented 3. No focal weakness. - Constitutional Vitals: Temp Pulse Resp BP Pulse Ox 97.8 F 97 H 22 168/75 90 04/12/20 08:42 04/12/20 08:42 04/12/20 08:42 04/12/20 08:42 04/12/20 08:42 Plan Activity: advance as tolerated Weight Bearing Status: Full Weight Bearing Diet: regular Follow up with: ROSA HUGHES MD [Primary Care Provider] - 3-5 Days Prescriptions: cephALEXin [Keflex] 500 mg PO Q8HR #15 cap Azithromycin [Zithromax TAB] 250 mg PO QDAY #4 tablet
[2020-04-12 12:34] LABS: Calcium 9.5 mg/dL (8.4-10.2)
== END 2020-04-12 13:50 | disposition home or self-care (01) | DRG 871 ==
LOC: ED 12:51 → 4A 17:01 → OBSVTOIN 17:01 → 4A 18:42
PROVIDERS: ADMIT Internal Medicine; ATTEND Internal Medicine
DX: A41.9 Sepsis, unspecified organism (principal); J18.9 Pneumonia, unspecified organism; N17.0 Acute kidney failure with tubular necrosis; N18.4 Chronic kidney disease, stage 4 (severe); R73.9 Hyperglycemia, unspecified; I48.91 Unspecified atrial fibrillation; K21.9 Gastro-esophageal reflux disease without esophagitis; F01.50 Vascular dementia, unspecified severity, without behavioral disturbance, psychotic disturbance, mood disturbance, and anxiety; I12.9 Hypertensive chronic kidney disease with stage 1 through stage 4 chronic kidney disease, or unspecified chronic kidney disease; Z20.828 Contact with and (suspected) exposure to other viral communicable diseases; Z90.710 Acquired absence of both cervix and uterus; Z82.49 Family history of ischemic heart disease and other diseases of the circulatory system; Z79.899 Other long term (current) drug therapy
CPT/HCPCS: 36415; 71045; 78580; 80048; 80053; 80076; 81001; 82140; 83036; 83690; 83880; 84484; 85025; 85610; 85730; 86140; 87040; 93005; 96365; 96375; G0378; A9540; J1644; J1956; J2060; J7030; J7040; U0003-CS

== ENCOUNTER 2020-04-12 15:01 | Emergency (ER) | payer MEDICARE ==
--- NOTE | 2020-04-12 16:28 | XRay Report ---
CHEST 1 VIEW INDICATION: syncope, recent pneumonia. COMPARISON: 03/11/2020 FINDINGS: Support devices: None. Heart: Stable Lungs/Pleura: Mild vascular congestion and small right pleural effusion are unchanged. No convincing pneumonia or pneumothorax. Additional findings: None. IMPRESSION: Mild pulmonary venous congestion and small right pleural effusion. Signer Name: Memo Puga Jr, MD Signed: 04/12/2020 4:23 PM Workstation Name: [id number]
--- NOTE | 2020-04-12 16:33 | Emergency Department Report ---
ED Syncope HPI - General Chief Complaint: Dyspnea/Respdistress Stated Complaint: AMS Time Seen by Provider: 04/12/20 15:06 - History of Present Illness Initial Comments: 85-year-old female presents to ED following syncopal episode. Patient was recently discharged from this facility at around 130 this afternoon following admission for pneumonia. Patient has history of COPD, however son states that patient does not normally wear O2 even though she has it at home. Son states he spoke to nurse earlier this afternoon when patient was ready for discharge. He states he was told by the nurse that they would ambulate the patient prior to letting her go home. Son states he arrived to the hospital and took patient home. At that time patient's mental status was at baseline. However, when they arrived home patient cannot get out of the car by herself because she was so generally weak. Son states he and her optometrist owner had to lift her out of the vehicle. He states once they got inside, patient had a syncopal episode, losing consciousness briefly. He then called EMS to transport patient back to the ER. EMS reports patient's O2 sats were in the 80s on room air. Patient denies any headache, chest pain, shortness of breath. Son currently at bedside, states her mental status is at baseline. Timing/Prior Episodes: single episode today Precipitating Factors: Positive: unknown Context: standing Loss of Consciousness: brief (seconds) Current Symptoms: weakness. denies: chest pain, headache - Related Data Allergies/Adverse Reactions: Allergies No Known Allergies Allergy (Verified 11/08/18 11:32) Home Medications: Ambulatory Orders Lansoprazole [Prevacid] 30 mg PO DAILY 07/24/15 Vitamin E 400 unit PO DAILY 07/24/15 Ascorbic Acid [Vitamin C with Violeta Hips] 500 mg PO DAILY 11/08/18 Cholecalciferol Vit D3 [Vitamin D3 400 UNIT TAB] 400 unit PO DAILY 11/08/18 Memantine HCl [Namenda Xr] 28 mg PO DAILY 11/08/18 Multivit-Min/Iron/Folic/Lutein [Centrum Silver Women Tablet] 1 each PO DAILY 11/08/18 Verapamil ER [Calan SR] 240 mg PO DAILY 11/08/18 Loratadine [Claritin] 10 mg PO DAILY 04/10/20 Olmesartan (Nf) [Benicar] 40 mg PO QDAY 04/10/20 Azithromycin [Zithromax TAB] 250 mg PO QDAY #4 tablet 04/12/20 cephALEXin [Keflex] 500 mg PO Q8HR #15 cap 04/12/20 ED Review of Systems ROS: Stated complaint: AMS Other details as noted in HPI Comment: All other systems reviewed and negative Respiratory: denies: shortness of breath Cardiovascular: denies: chest pain Gastrointestinal: denies: abdominal pain Neurological: denies: headache ED Past Medical Hx - Past Medical History Hx Hypertension: Yes Hx Heart Attack/AMI: No Hx Congestive Heart Failure: No Hx Deep Vein Thrombosis: No Hx Pulmonary Embolism: No Hx Liver Disease: No Hx Renal Disease: No Hx Sickle Cell Disease: No Hx Arthritis: Yes Hx Seizures: No Hx COPD: (home O2- sleep apnea) Hx Tuberculosis: No Hx Dementia: Yes Hx HIV: No Additional medical history: stage 4 renal disease. - Surgical History Hx Coronary Stent: No Hx Open Heart Surgery: No Hx Pacemaker: No Hx Internal Defibrillator: No Hx Cholecystectomy: No Hx Appendectomy: No Hx Breast Surgery: Yes (cancer breast) Additional Surgical History: Breast surgery (breast CA), hysterectomy - Social History Smoking Status: Unknown if ever smoked - Medications Home Medications: Home Medications Medication Instructions Recorded Confirmed Last Taken Type Lansoprazole [Prevacid] 30 mg PO DAILY 07/24/15 04/10/20 Unknown History Vitamin E 400 unit PO DAILY 07/24/15 04/10/20 Unknown History Ascorbic Acid [Vitamin C with Violeta 500 mg PO DAILY 11/08/18 04/10/20 Unknown History Hips] Cholecalciferol Vit D3 [Vitamin D3 400 unit PO DAILY 11/08/18 04/10/20 Unknown History 400 UNIT TAB] Memantine HCl [Namenda Xr] 28 mg PO DAILY 11/08/18 04/10/20 Unknown History Multivit-Min/Iron/Folic/Lutein 1 each PO DAILY 11/08/18 04/10/20 Unknown History [Centrum Silver Women Tablet] Verapamil ER [Calan SR] 240 mg PO DAILY 11/08/18 04/10/20 Unknown History Loratadine [Claritin] 10 mg PO DAILY 04/10/20 04/10/20 Unknown History Olmesartan (Nf) [Benicar] 40 mg PO QDAY 04/10/20 04/10/20 Unknown History Azithromycin [Zithromax TAB] 250 mg PO QDAY #4 tablet 04/12/20 Unknown Rx cephALEXin [Keflex] 500 mg PO Q8HR #15 cap 04/12/20 Unknown Rx ED Physical Exam - General Limitations: Altered Mental Status General appearance: alert, in no apparent distress - Head Head exam: Present: atraumatic, normocephalic - Eye Eye exam: Present: normal appearance, EOMI - ENT ENT exam: Present: mucous membranes moist - Neck Neck exam: Present: normal inspection - Respiratory Respiratory exam: Present: normal lung sounds bilaterally. Absent: respiratory distress - Cardiovascular Cardiovascular Exam: Present: regular rate, normal rhythm - GI/Abdominal GI/Abdominal exam: Present: soft. Absent: distended, tenderness - Extremities Exam Extremities exam: Present: normal inspection - Neurological Exam Neurological exam: Present: alert, altered (At baseline per son), CN II-XII intact. Absent: motor sensory deficit - Psychiatric Psychiatric exam: Present: normal affect, normal mood - Skin Skin exam: Present: warm, dry, intact, normal color ED Course Vital Signs 04/12/20 04/12/20 04/12/20 15:45 15:48 16:03 Temperature 98.9 F Pulse Rate 72 Respiratory 25 H 20 21 Rate Blood Pressure Blood Pressure 126/46 [Left] O2 Sat by Pulse 85 85 92 Oximetry 04/12/20 04/12/20 04/12/20 16:06 16:35 17:00 Temperature Pulse Rate 72 69 68 Respiratory 23 15 22 Rate Blood Pressure 121/48 136/46 Blood Pressure [Left] O2 Sat by Pulse 92 96 Oximetry 04/12/20 20:01 Temperature Pulse Rate 82 Respiratory 21 Rate Blood Pressure 146/58 Blood Pressure [Left] O2 Sat by Pulse 95 Oximetry ED Medical Decision Making - Lab Data Result diagrams: 04/12/20 16:37 04/12/20 16:37 - EKG Data -: EKG Interpreted by Tn EKG shows normal: sinus rhythm, axis, intervals, QRS complexes, ST-T waves Rate: normal - EKG Data Interpretation: LVH, other (Artifact present) - Radiology Data Radiology results: report reviewed, image reviewed - Medical Decision Making 85-year-old female recently discharged from this facility earlier today presents to ED following syncopal episode at home. EKG unremarkable. CT head shows no acute changes. Chest x-ray shows venous congestion, no pneumonia. Labs are unremarkable. Patient has O2 sats of 85% on room air, however on 2 L her O2 improves to 93%. Spoke with hospitalist, Dr. Tillman, to evaluate patient for readmission. - Differential Diagnosis Pneumonia, CVA, vasovagal syncope Critical care attestation.: If time is entered above; I have spent that time in minutes in the direct care of this critically ill patient, excluding procedure time. ED Disposition Clinical Impression: Hypoxia, Syncope Disposition: -09 OP ADMIT IP TO THIS HOSP Is pt being admited?: Yes Condition: Stable Instructions: Syncope (ED) Referrals: PRIMARY CARE, [Primary Care Provider] - 3-5 Days Time of Disposition: 18:57
--- NOTE | 2020-04-12 16:45 | Cat Scan Report ---
. CT head/brain wo con INDICATION / CLINICAL INFORMATION: 85 years Female; syncope. TECHNIQUE: Routine CT head without contrast. All CT scans at this location are performed using CT dos e reduction for ALARA by means of automated exposure control. 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 No acute h emorrhage, mass effect, midline shift, hydrocephalus, or acute, large territorial infarct. Mild to moderate cerebral atrophy. The ventricles are prominent, presumably related to central atroph y. Asymmetrically prominent anterior temporal lobe atrophy suggested. Certainly, there is hippocampal atrophy findings have progressed from prior. There are mild areas of decreased attenuation in the white matter of the cerebral hemispheres. These are nonspecific findings and may be related to microangiopathy (hypertension, diabetes, atheroscleros is), given the patient's age. It might be difficult to evaluate for small areas of ischemia without d iffusion imaging by MRI. CRANIOCERVICAL JUNCTION: No significant abnormality. ORBITS: No significant abnormality of visualized orbits. SINUSES / MASTOIDS: No significant abnormality in the visualized paranasal sinuses or mastoid air yeni ls. 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 Atherosclerotic disease is seen in the anterior circulation. IMPRESSION: 1. No focal mass, hemorrhage, hydrocephalus, or acute, large territorial infarct. Signer Name: Misael Bianchi MD, III Signed: 04/12/2020 4:40 PM Workstation Name: [id number]
[2020-04-12 17:06] LABS: Basophils # (Auto) 0.1 K/mm3 (0.0-0.1); Basophils % (Auto) 0.8 % (0.0-1.8); Eosinophils % (Auto) 0.5 % (0.0-4.3); Hematocrit 33.9 % (30.3-42.9); Hemoglobin 11.6 gm/dl (10.1-14.3); Lymphocytes # (Auto) 0.7 K/mm3 (1.2-5.4); Lymphocytes % (Auto) 7.4 % (13.4-35.0); Mean Corpuscular HGB Conc 34 % (30-34); Mean Corpuscular Volume 88 fl (79-97); Monocytes % (Auto) 10.5 % (0.0-7.3); Platelet Count 258 K/mm3 (140-440); Red Blood Count 3.87 M/mm3 (3.65-5.03); Red Cell Distribution Width 13.6 % (13.2-15.2)
[2020-04-12 17:17] LABS: INR 1.06 (0.87-1.13)
[2020-04-12 17:18] LABS: Partial Thromboplastin Time 29.4 Sec. (24.2-36.6)
[2020-04-12 17:26] LABS: Calcium 9.9 mg/dL (8.4-10.2)
--- NOTE | 2020-04-12 19:25 | Event Note ---
Date: 04/12/20 Patient discharged today Patient apparently passed out at home Patient has home oxygen and nebulizer machine Patient to continue using home oxygen. Because of syncope-vasovagal Does not meet criteria for admission
[2020-04-12 20:46] VITALS: BP 146/58
== END 2020-04-12 20:46 | disposition admitted as inpatient to this hospital (09) ==
LOC: ED 15:01
DX: R53.1 Weakness (principal); R09.02 Hypoxemia; Z90.710 Acquired absence of both cervix and uterus; Z85.3 Personal history of malignant neoplasm of breast; Z79.899 Other long term (current) drug therapy; Z98.890 Other specified postprocedural states
CPT/HCPCS: 36415; 70450; 71045; 80048; 84484; 85025; 85610; 85730; 93005